=== PATIENT | male | born 1970 | race Caucasian/White ===

== ENCOUNTER 2024-08-07 10:01 | Emergency (ER) | payer MEDICARE, MEDICAID, SELFPAY ==
--- NOTE | ~2024-08-07 | CT_ITS ---
EXAMINATION: CT HEAD WITHOUT CONTRAST CLINICAL INFORMATION: Altered mental status COMPARISON: None available. TECHNIQUE: Contiguous axial imaging was performed from the skull base to vertex without intravenous administration of contrast. This CT examination was performed using dose optimization techniques as appropriate, variously including the following: *Automated exposure control *Adjustment of mA and/or kV according to patient size (this includes techniques or standardized protocols for targeted exams where dose is matched to indication/reason for exam; i.e. extremities or head) *Use of iterative reconstruction technique DLP: 733 mGy-cm FINDINGS: The ventricles and sulci are normal in size and configuration. No acute hemorrhage, mass effect or shift is evident. Poon-white differentiation is maintained. In the posterior fossa, the brainstem, cerebellum and fourth ventricle image normally. The orbits and calvarium are intact. The paranasal sinuses and mastoid air cells are well pneumatized and clear. Incidental note is made of a partially empty sella turcica. CT/CT head/brain wo IV con IMPRESSION: 1. No acute intracranial pathology. Electronically signed by: Matthew Archuleta MD 08/07/2024 12:57 PM EDT
[2024-08-07 10:06] VITALS: BP 125/78; BP 138/92; PULSE 92; PULSE 94; RESP 18; TEMP 36.8; O2SAT 96; O2SAT 98; BMI 20.1
--- NOTE | 2024-08-07 10:18 | ECG_ITS ---
Test Reason : AMS Blood Pressure : / mmHG Vent. Rate : 087 BPM Atrial Rate : 087 BPM P-R Int : 158 ms QRS Dur : 090 ms QT Int : 364 ms P-R-T Axes : 059 005 035 degrees QTc Int : 438 ms Artifact in tracing Normal sinus rhythm Normal ECG No previous ECGs available Referred By: Malu Arajuo Electronically Signed By:REECE ARTEAGA
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
[2024-08-07 10:43] LABS: MANUAL DIFF FLAG NO
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
[2024-08-07 10:48] LABS: Basophils Percent Auto 0.4 % (0-2); Eosinophils Absolute Auto 0.1 X10*3/uL (0.0-0.4); Eosinophils Percent Auto 1.3 % (0-4); Hematocrit 42.1 % (42.0-52.0); Hemoglobin 14.5 g/dl (14.0-18.0); Imm Gran Abs Auto 0.01 X10*3/uL (0.00-0.03); Imm Gran Pct Auto 0.2 % (0.0-0.4); Lymphocytes Absolute Auto 1.1 X10*3/uL (1.2-4.9); Lymphocytes Percent Auto 21.3 % (20-40); Mean Corpuscular HGB Conc 34.4 g/dl (31.0-36.0); Mean Corpuscular Hemoglobin 30.9 pg (27.0-33.0); Mean Corpuscular Volume 89.8 fL (80.0-98.0); Mean Platelet Volume 9.6 fL (9.4-12.4); Monocytes Absolute Auto 0.5 X10*3/uL (0.1-1.2); Monocytes Percent Auto 9.1 % (2-11); Neutrophils Absolute Auto 3.6 x10*3/uL (2.0-8.3); Neutrophils Percent Auto 67.7 % (45-73); Platelet Count 222 X10*3/uL (160-400); Red Blood Count 4.69 X10*6/uL (4.60-5.80); Red Cell Distribution Width 13.1 % (11.0-16.0); White Blood Count 5.3 X10*3/uL (4.8-10.8)
[2024-08-07 11:02] LABS: Ethanol < 10 mg/dL
[2024-08-07 11:03] LABS: Alanine Aminotransferase 12 U/L (0-40); Albumin Level 4.4 g/dL (3.5-5.0); Alkaline Phosphatase 50 U/L (39-117); Anion Gap 12 (12-20); Aspartate Amino Transferase 16 U/L (5-37); Bilirubin Direct 0.2 mg/dL (0.0-0.5); Bilirubin Total 0.7 mg/dL (0.0-1.0); Blood Urea Nitrogen 11 mg/dL (9-16); Calcium 9.2 mg/dL (8.4-10.2); Carbon Dioxide 25 mmol/L (22-29); Chloride 109 mmol/L (96-108); Creatinine Clr Calc Pharmacy 101.4; Estimated Glomerular Filt Rate > 60; Glucose Random 123 mg/dL (60-115); Lipase 37 U/L (8-78); Sodium 142 mmol/L (135-145); Total Protein 7.2 g/dL (6.5-8.0)
[2024-08-07 11:15] LABS: Acetaminophen LAB < 3 mcg/mL (<30); Salicylate < 5.0 mg/dL (15-30); Troponin-I High Sensitivity < 2.7 ng/L (<3.5-35.0)
[2024-08-07 12:07] VITALS: BP 114/73; PULSE 75; RESP 14; TEMP 37.4; O2SAT 98
[2024-08-07 15:03] VITALS: BP 108/57; PULSE 81; RESP 16; O2SAT 98
--- NOTE | 2024-08-07 16:33 | PC.NURSE ---
Pt cleaned and ate tray. Continues to talk to self and doesnt seem to answer questions appropriately but is cooperative with care. Plan for CARE team consult Diet ordered and pharmacy to do med rec when able
--- NOTE | 2024-08-07 18:06 | PHA.MEDREC ---
Pharmacy Consult ? Medication Reconciliation Pharmacy has completed the medication reconciliation. List from [facility]
[2024-08-07 18:20] VITALS: BP 126/87; PULSE 89; RESP 12; TEMP 37.7; O2SAT 100
--- NOTE | 2024-08-07 20:45 | MHC.EDTECH ---
This tech assumed care of patient at 1900,introduced self to patient,vitals taken,patient is clean and dry.
--- NOTE | 2024-08-07 20:52 | MHC.CARE ---
Mark was assessed via CARE TEAM and was found appropriate for an BOY follow up. He currently resides at [facility] and an appropriate discharge plan is needed prior to him returning. Guardian- Margarita [phone] is advocating for Mark to return to the assisted. She reported the assisted RN (Marnie [phone]) needs to clear him first. Important numbers/ contacts (long term care social worker Carri [phone]) ([facility] ynnhltou-[phone]-he decides if Mark returns after cleared) (group work program aide Dynasty [phone] or [phone]).
[2024-08-07 21:00] VITALS: BP 140/84; PULSE 91; RESP 18; TEMP 37.2; O2SAT 100
[2024-08-07 22:21] LABS: Appearance Urine Clear; Color Urine Dark Yellow; Glucose Urine UA Negative (Negative); Leukocyte Esterase Urine Trace (Negative); Nitrite Urine Negative (Negative); PH 5.5 (5.0-9.0); Specific Gravity - Urine >= 1.030 (1.005-1.025); UMIC TRIGGER UACC YES; Urine Blood Negative (Negative); Urine Ketones 40 mg/dL (Negative); Urine Protein Trace mg/dL (Neg-Trace)
--- NOTE | 2024-08-07 22:26 | MHC.EDTECH ---
Assisted Coni MOSCOSO with a straight cath,75MLS of concentrated urine obtained, sample collected and sent to lab,applied a [place] cath to keep patient clean and dry ,patient tolerated well,rectal temp taken 98.1
[2024-08-07 22:31] LABS: Amphetamine Screen Urine Not Detected (Not Detect); Barbiturates, Urine Not Detected (Not Detect); Benzodiazepines Screen Urine Not Detected (Not Detect); Buprenorphine Scr Not Detected (Not Detect); Cannabinoid Screen Urine Not Detected (Not Detect); Cocaine Screen Urine Not Detected (Not Detect); Fentanyl, urine Not Detected (Not Detect); Methadone Screen, Urine Not Detected (Not Detect); Opiate Screen Urine Not Detected (Not Detect); Oxycodone Screen Urine Not Detected (Not Detect); Phencyclidine Screen Urine Not Detected (Not Detect)
[2024-08-07 22:33] LABS: Bacteria Urine None Seen (None Seen); RBC Urine 0-2 /HPF (0-2); Squamous Epithelial Cell Urine 0-2 /HPF (0-2); WBC Urine 0-5 /HPF (0-5)
[2024-08-08 01:00] VITALS: RESP 16
[2024-08-08 06:52] VITALS: BP 134/81; PULSE 83; RESP 18; TEMP 36.8; O2SAT 100
[2024-08-08 08:35] VITALS: BP 118/76
[2024-08-08] MEDS: lisinopriL 5 MG TABLET PO (08:35)
[2024-08-08] MEDS: Docusate Sodium 100 MG CAPSULE PO (08:35)
[2024-08-08] MEDS: Thiamine HCL 100 MG TABLET PO (08:35)
[2024-08-08] MEDS: Loratadine 10 MG TABLET PO (08:35)
[2024-08-08] MEDS: Sennosides 8.6 MG TABLET PO (08:38)
[2024-08-08] MEDS: polyethylene glycoL 3350 17 GM POWD.PACK PO (08:38)
[2024-08-08] MEDS: risperiDONE 0.25 MG TABLET PO (08:38)
[2024-08-08] MEDS: Cholecalciferol (Vitamin D3) 25 MCG TABLET PO (09:10)
[2024-08-08] MEDS: Benztropine Mesylate 1 MG TABLET PO (09:10)
--- NOTE | 2024-08-08 12:50 | MHC.CARE ---
Pt was seen for follow up by CARE team, verbal consult done with Merced Nix NP. Pt does not currently meet inpatient level of care and will discharged back to custodial. Clinician provided ED RN with contact information for [facility] director of custodial as he will arrange transport back to custodial. Waiting for return phone call for ETA. ED RN informed
[2024-08-08 14:52] VITALS: BP 118/76; PULSE 83; RESP 16; TEMP 36.8; O2SAT 100
== END 2024-08-08 14:53 | disposition home or self-care (01) ==
PROVIDERS: Emergency Medicine; Emergency Provider Emergency Medicine Emergency Medical Services; PCP Family Medicine
DX: R41.82 Altered mental status, unspecified (principal); F31.9 Bipolar disorder, unspecified; R45.6 Violent behavior; F91.8 Other conduct disorders; Z51.81 Encounter for therapeutic drug level monitoring; Z79.899 Other long term (current) drug therapy
CPT/HCPCS: 36415; 70450; 80048; 80076; 80143; 80179; 80307; 81001; 83690; 84484; 85025; 93005; 99285; S9485

== ENCOUNTER → 2024-08-07 10:18 | Outpatient (BNV) | payer MEDICARE, MEDICAID, SELFPAY | PROVIDERS: Emergency Provider Emergency Medicine; PCP Family Medicine; Visit Provider Internal Medicine | DX: R41.82 Altered mental status, unspecified (principal) | CPT/HCPCS: 93010 ==

== ENCOUNTER 2024-10-23 21:24 | Inpatient (IN) | payer MEDICARE, MEDICAID, SELFPAY ==
--- NOTE | ~2024-10-23 | CT_ITS ---
CLINICAL HISTORY: memory changes behavior changes CT head without contrast Comparison: CT/SR - CT HEAD/BRAIN WO IV CON - 08/07/24 10:52 EDT Findings: No intra-axial mass, midline shift, hydrocephalus, or acute hemorrhage. No significant atrophy-like change or white matter disease. The visualized paranasal sinuses and mastoid air cells are normal. The orbits are unremarkable. No skull fracture. IMPRESSION: 1. No acute intracranial findings This document has been electronically signed by: Trini Ragland MD on 10/24/2024 18:36:12
--- NOTE | ~2024-10-23 | CT_ITS ---
EXAMINATION: CT HEAD WITHOUT CONTRAST CLINICAL INFORMATION: Cognitive/affective weakness with psych meds. COMPARISON: CT brain 10/24/2024. TECHNIQUE: Contiguous axial imaging was performed from the skull base to vertex without intravenous administration of contrast. This CT examination was performed using dose optimization techniques as appropriate, variously including the following: *Automated exposure control *Adjustment of mA and/or kV according to patient size (this includes techniques or standardized protocols for targeted exams where dose is matched to indication/reason for exam; i.e. extremities or head) *Use of iterative reconstruction technique DLP 994 mGy/cm. FINDINGS: There is no acute intra-axial, extra-axial bleed, masses or midline shift. There is no acute infarction in evolution. There is no edema. The mcdowell to white matter differentiation is maintained normal. The lateral ventricles are symmetrical but moderately enlarged. Bone windows reveal no calvarial abnormality. There is no scalp soft tissue abnormality. Bilateral paranasal sinuses and mastoid air cells are well-aerated. CT/CT head/brain wo IV con IMPRESSION: No acute intracranial process seen. No change from 10/24/2024. Electronically signed by: Eugenio Small MD 11/06/2024 07:24 AM EST
[2024-10-23 21:35] VITALS: BP 139/80; BP 142/90; PULSE 104; PULSE 109; RESP 18; TEMP 36.8; O2SAT 98; BMI 25.8
[2024-10-23 22:19] LABS: Appearance Urine Clear; Color Urine Yellow; Glucose Urine UA Negative (Negative); Leukocyte Esterase Urine Negative (Negative); Nitrite Urine Negative (Negative); Specific Gravity - Urine 1.015 (1.005-1.025); Urine Blood Negative (Negative); Urine Ketones Negative (Negative); Urine Protein Negative (Neg-Trace)
[2024-10-23 22:22] LABS: Bacteria Urine None Seen (None Seen); Hyaline Casts Urine 0-2 /LPF (0-2); RBC Urine 0-2 /HPF (0-2); Squamous Epithelial Cell Urine 0-2 /HPF (0-2); WBC Urine 0-5 /HPF (0-5)
[2024-10-23 22:31] LABS: Amphetamine Screen Urine Not Detected (Not Detect); Barbiturates, Urine Not Detected (Not Detect); Benzodiazepines Screen Urine Not Detected (Not Detect); Buprenorphine Scr Not Detected (Not Detect); Cannabinoid Screen Urine Not Detected (Not Detect); Cocaine Screen Urine Not Detected (Not Detect); Fentanyl, urine Not Detected (Not Detect); Methadone Screen, Urine Not Detected (Not Detect); Opiate Screen Urine Not Detected (Not Detect); Oxycodone Screen Urine Not Detected (Not Detect); Phencyclidine Screen Urine Not Detected (Not Detect)
--- OUTSIDE RECORDS SUMMARY | 2024-10-23 22:42 | XMS_ITS | Clinical Summary ---
Author Organization Unknown Care Team Providers Care Chief Meter Reader Name Role Phone JULIO C HERNANDEZ MD, YOGI Unavailable Jeaneth FERRO RN, SHANNON Unavailable Unavailable Payers Payer Name Policy Type Policy Number Effective Date Expira tion Date ON [place]AND [place]IC[place] [id number] [place] - [place] [id number] [facility] - PD [id number] Problems Condition Name Condition Details Condition Category Status Onset Date Resolution Date Last Treatment Date Treating Clinician Comments BIPOLAR DISORDER, UNSPECIFIED Active 2023-10 00:00: 00 Allergies, Adverse Reactions, Alerts Allergy Name Allergy Type Status Severity Reaction(s) Onset Date Inactive Date Treating Clinician Comments NKA Propensity to adverse reactions Active 2024-07 08:01:4 2 Medications Ordered Medication Name Filled Medication Name Start Date Stop Date Current Medication? Ordering Clinician Indication Dosage Frequency Signature (SIG) Comments Components lisinopril 5 mg tablet 2022-10 00:00: 00 Yes [id number] 1 tablet DAILY 1 tablet DAILY (route: oral) Med Classific ation: Cardiovas cular Therapy Agents trazodone 50 mg tablet 2022-10 00:00: 00 08-11 23:59 :00 No [id number] 1 tablet BEDTIME 1 tablet BEDTIME (route: oral) Med Classific ation: Central Nervous System Agents bisacodyl 10 mg rectal suppository 2023-10 00:00: 00 Yes [id number] 1 supposi tory, rectal 3 TIMES DAILY 1 suppositor y, rectal 3 TIMES DAILY (route: rectal) Med Classific ation: Gastroint estinal Therapy Agents cholecalcif andrez (vitamin D3) 25 mcg (1,000 unit) tablet 2023-10 00:00: 00 Yes [id number] 1 tablet DAILY 1 tablet DAILY (route: oral) Med Classific ation: Electroly te Balance-N utritiona l Products clonidine HCl 0.1 mg tablet 2023-10 00:00: 00 Yes [id number] 1 tablet BEDTIME 1 tablet BEDTIME (route: oral) Med Classific ation: Cardiovas cular Therapy Agents docusate sodium 100 mg capsule 2023-10 0- 00:00: 00 Yes [id number] 1 capsule 2 TIMES DAILY 1 capsule 2 TIMES DAILY (route: oral) Med Classific ation: Gastroint estinal Therapy Agents Fleet Enema 19 gram-7 gram/118 mL 2023-10 0- 00:00: 00 Yes [id number] Per instruc tions EVERY 8 HOURS Per instructio ns EVERY 8 HOURS (route: rectal) Med Classific ation: Gastroint estinal Therapy Agents lisinopril 5 mg tablet 2023-10 00:00: 00 Yes [id number] Per instruc tions DAILY Per instructio ns DAILY (route: oral) Med Classific ation: Cardiovas cular Therapy Agents loratadine 10 mg capsule 2023-10 00:00: 00 Yes [id number] 1 capsule DAILY 1 capsule DAILY (route: oral) Med Classific ation: Respirato ry Therapy Agents MelatoninMa x 10 mg chewable tablet 2023-10 00:00: 00 Yes [id number] 1 tablet BEDTIME 1 tablet BEDTIME (route: oral) Med Classific ation: Central Nervous System Agents Milk of Magnesia 400 mg/5 mL oral suspension 2023-10 0 00:00: 00 Yes [id number] 30 mL EVERY 8 HOURS 30 mL EVERY 8 HOURS (route: oral) Med Classific ation: Gastroint estinal Therapy Agents Miralax 17 gram oral powder packet 2023-10 00:00: 00 Yes [id number] 1 packet DAILY 1 packet DAILY (route: oral) Med Classific ation: Gastroint estinal Therapy Agents Mylanta Maximum Strength 400 mg-400 mg-40 mg/5 mL oral suspension 2023-10 0 00:00: 00 Yes [id number] 30 mL EVERY 4 HOURS 30 mL EVERY 4 HOURS (route: oral) Med Classific ation: Gastroint estinal Therapy Agents Narcan 4 mg/actuatio n nasal spray 2023-10 0-18 00:00: 00 Yes [id number] 1 spray DAILY 1 spray DAILY (route: nasal) Med Classific ation: Antidotes and other Reversal Agents Refresh Tears 0.5 % eye drops 2023-10 00:00: 00 Yes [id number] 2 drops 3 TIMES DAILY 2 drops 3 TIMES DAILY (route: ophthalmic (eye)) Med Classific ation: Ophthalmi c Agents risperidone 0.25 mg tablet 2023-10 00:00: 00 Yes [id number] 1 tablet 2 TIMES DAILY 1 tablet 2 TIMES DAILY (route: oral) Med Classific ation: Central Nervous System Agents Senna Lax 8.6 mg tablet 2023-10 00:00: 00 Yes [id number] 2 tablet EVERY AM 2 tablet EVERY AM (route: oral) Med Classific ation: Gastroint estinal Therapy Agents thiamine HCl (vitamin B1) 100 mg tablet 2023-10 00:00: 00 Yes [id number] 1 tablet DAILY 1 tablet DAILY (route: oral) Med Classific ation: Electroly te Balance-N utritiona l Products trazodone 50 mg tablet 2023-10 00:00: 00 Yes [id number] .5 tablet BEDTIME .5 tablet BEDTIME (route: oral) Med Classific ation: Central Nervous System Agents Vital Signs Vital Name Observation Time Observation Value Commen ts BMI (%) 2024-08-11 12:55:00.000 22 kg/m2 Height 2024-08-11 09:45:49.000 70 [in_us] Weight (lbs) 2024-08-11 12:55:00.000 155 [lb_av] Plan of Treatment Planned Activity Planned Date Details Comments Future Scheduled Test SKILLED NU RSE TO EVALUATE PATIENT, IDENTIFY PRIMARY AND CO-MORBID CONDITIONS CODED PER CODING GUIDELINES, AND DEVELOP PATIENT SPECIFIC PLAN OF CARE THAT INCLUDES PATIENT GOAL FOR HOME HEALTH. [code = SKILLED NURSE TO EVALUATE PATIENT, IDENTIFY PRIMARY AND CO-MORBID CONDITIONS CODED PER CODING GUIDELINES, AND DEVELOP PATIENT SPECIFIC PLAN OF CARE THAT INCLUDES PATIENT GOAL FOR HOME HEALTH.] Future Scheduled Test SKILLED NU RSE WILL MAINTAIN SITUATIONAL AWARENESS FOR SAFETY AND WILL NOTIFY CLINICAL FORGE OPERATOR AND PHYSICIAN/PROVIDER WITH ANY CHANGE IN CONDITION. [code = SKILLED NURSE WILL MAINTAIN SITUATIONAL AWARENESS FOR SAFETY AND WILL NOTIFY CLINICAL FORGE OPERATOR AND PHYSICIAN/PROVIDER WITH ANY CHANGE IN CONDITION.] Future Scheduled Test SKILLED NU RSE TO ASSESS PATIENTS PSYCHOSOCIAL STATUS TO IDENTIFY POTENTIAL ISSUES THAT MAY COMPLICATE THE PROVISION OF THE PLAN OF CARE INCLUDING THE PATIENTS ABILITY TO ACCESS COMMUNITY RESOURCES AND PSYCHOSOCIAL SUPPORT SERVICES. [code = SKILLED NURSE TO ASSESS PATIENTS PSYCHOSOCIAL STATUS TO IDENTIFY POTENTIAL ISSUES THAT MAY COMPLICATE THE PROVISION OF THE PLAN OF CARE INCLUDING THE PATIENTS ABILITY TO ACCESS COMMUNITY RESOURCES AND PSYCHOSOCIAL SUPPORT SERVICES.] Future Scheduled Test SKILLED NU RSE TO O/A OF PATIENTS MENTAL/BEHAVIORAL STATUS, ASSESS VITAL SIGNS 3WK8 ALLOW 2 PRNS FOR MEDICATION MANAGEMENT. [code = SKILLED NURSE TO O/A OF PATIENTS MENTAL/BEHAVIORAL STATUS, ASSESS VITAL SIGNS 3WK8 ALLOW 2 PRNS FOR MEDICATION MANAGEMENT.] Future Scheduled Test SKILLED NU RSE FOR O/A OF GENERAL HEALTH STATUS OF PAIN, CARDIAC, RESPIRATORY, GASTROINTESTINAL, GENITOURINARY, SKIN, NEUROLOGIC, ENDOCRINE SYSTEMS TO IDENTIFY CHANGES ASSOCIATED WITH EXACERBATION FOR EARLY INTERVENTION OF COMPLICATIONS 3WK8 [code = SKILLED NURSE FOR O/A OF GENERAL HEALTH STATUS OF PAIN, CARDIAC, RESPIRATORY, GASTROINTESTINAL, GENITOURINARY, SKIN, NEUROLOGIC, ENDOCRINE SYSTEMS TO IDENTIFY CHANGES ASSOCIATED WITH EXACERBATION FOR EARLY INTERVENTION OF COMPLICATIONS 3WK8 ] Future Scheduled Test SKILLED NU RSE TO REVIEW PATIENT MEDICATIONS. INSTRUCT PATIENT/CAREGIVER ON MONITORING OF EFFECTIVENESS, ADVERSE DRUG REACTIONS, SIDE EFFECTS OF ALL MEDICATIONS (PRESCRIPTION/-OTC), AND HOW AND WHEN TO REPORT PROBLEMS. [code = SKILLED NURSE TO REVIEW PATIENT MEDICATIONS. INSTRUCT PATIENT/CAREGIVER ON MONITORING OF EFFECTIVENESS, ADVERSE DRUG REACTIONS, SIDE EFFECTS OF ALL MEDICATIONS (PRESCRIPTION/-OTC), AND HOW AND WHEN TO REPORT PROBLEMS.] Future Scheduled Test SKILLED NU RSE FOR O/A OF NEUROCOGNITIVE AND BEHAVIORAL STATUS [code = SKILLED NURSE FOR O/A OF NEUROCOGNITIVE AND BEHAVIORAL STATUS] Future Scheduled Test SKILLED NU RSE FOR O/A OF ALTERED MOOD [code = SKILLED NURSE FOR O/A OF ALTERED MOOD] Future Scheduled Test SKILLED NU RSE FOR O/A OF ALTERED THOUGHT PROCESS AND/OR DISRUPTION IN COGNITIVE OPERATIONS AND ACTIVITIES [code = SKILLED NURSE FOR O/A OF ALTERED THOUGHT PROCESS AND/OR DISRUPTION IN COGNITIVE OPERATIONS AND ACTIVITIES ] Future Scheduled Test PHYSICAL T HERAPIST TO EVALUATE PATIENT FOR PT EVALUATION [code = PHYSICAL THERAPIST TO EVALUATE PATIENT FOR PT EVALUATION ] Future Scheduled Test SKILLED NU RSE TO PROVIDE INSTRUCTION ON FALL PREVENTION MEASURES. [code = SKILLED NURSE TO PROVIDE INSTRUCTION ON FALL PREVENTION MEASURES.] Future Scheduled Test SKILLED NU RSE FOR OBSERVATION AND ASSESSMENT OF PATIENTS PAIN LEVEL AND EFFECTIVENESS OF PAIN MANAGEMENT REGIMEN. SKILLED NURSE TO INSTRUCT PATIENT/CAREGIVER REGARDING PHARMACOLOGIC AND NON-PHARMACOLOGIC PAIN CONTROL MEASURES. SKILLED NURSE TO REPORT TO PHYSICIAN IF PAIN IS UNCONTROLLED WITH CURRENT PAIN MANAGEMENT REGIMEN. [code = SKILLED NURSE FOR OBSERVATION AND ASSESSMENT OF PATIENTS PAIN LEVEL AND EFFECTIVENESS OF PAIN MANAGEMENT REGIMEN. SKILLED NURSE TO INSTRUCT PATIENT/CAREGIVER REGARDING PHARMACOLOGIC AND NON-PHARMACOLOGIC PAIN CONTROL MEASURES. SKILLED NURSE TO REPORT TO PHYSICIAN IF PAIN IS UNCONTROLLED WITH CURRENT PAIN MANAGEMENT REGIMEN.] Goal 2024-08-16 Patient Goal - P ATIENT UNABLE TO ARTICULATE GOALS FOR TREATMENT WITH ZULEMA SANTOS Goal Provider Goal - A PLAN OF CARE WILL BE ESTABLISHED THAT MEETS PATIENT'S FDC NEEDS AND INCLUDES PATIENT GOAL FOR HOME HEALTH. Goal Provider Goal - PATIENT WILL REMAIN SAFE IN THE COMMUNITY AND WILL BE FREE OF DANGER TO SELF AND OTHERS THROUGHOUT THE CERTIFICATION PERIOD. Goal Provider Goal - PSYCHOSOCIAL NEEDS WILL BE IDENTIFIED AND PLAN IMPLEMENTED TO MINIMIZE RISK THROUGHOUT CERTIFICATION PERIOD. Goal Provider Goal - ALTERED MENTAL/BEHAVIORAL STATUS WILL BE IDENTIFIED PROMPTLY AND INTERVENTION INITIATED QUICKLY TO MINIMIZE ASSOCIATED RISKS THROUGHOUT CERTIFICATION PERIOD. Goal Provider Goal - CHANGE IN GENERAL HEALTH STATUS WILL BE IDENTIFIED AND REPORTED TO PHYSICIAN FOR PROMPT INTERVENTION TO MINIMIZE ASSOCIATED RISKS THROUGHOUT CERTIFICATION PERIOD. Goal Provider Goal - PATIENT/CAREGIVER WILL VERBALIZE UNDERSTANDING OF EDUCATION PROVIDED ON MEDICATIONS BY THE END OF THE CERTIFICATION PERIOD. Goal Provider Goal - PATIENT WILL BE ABLE TO PERFORM DAILY FUNCTIONS AND MAINTAIN OPTIMAL BEHAVIORAL/NEUROCOGNITIVE STATUS THROUGHOUT CERTIFICATION PERIOD. Goal Provider Goal - PATIENT WILL BE ABLE TO PERFORM DAILY FUNCTIONS AND HAVE OPTIMAL IMPROVEMENT IN MOOD STABILITY THROUGHOUT CERTIFICATION PERIOD. Goal Provider Goal - PATIENT WILL BE ABLE TO PERFORM DAILY FUNCTIONS AND HAVE OPTIMAL IMPROVEMENT IN THOUGHT PROCESS THROUGHOUT CERTIFICATION PERIOD. Goal Provider Goal - A PHYSICAL THERAPY EVALUATION TO BE COMPLETED WITH RECOMMENDATIONS AND/OR WRITTEN PLAN OF TREATMENT ESTABLISHED FOR PHYSICIANS SIGNATURE. Goal Provider Goal - PATIENT/CAREGIVER DEMONSTRATES UNDERSTANDING OF FALL PREVENTION MEASURES BY THE END OF THE CERTIFICATION PERIOD. Reason for Visit REMAINS INPATIENT AT TIME OF DISCHARGE Encounters Start Date/Time End Date/Time Encounter Type Admission Type Attending [facility] Facility Care Department Encounter ID Discharge Date Discharge Status Discharge Condition Discharge Reason Percent Goals Met 2024-08-11 00:00:00 2024-08-16 00:00:00 Outpatient SHANNON H[facility]Y [facility] [id number] 2024-08-16 00:00:00 DISCHARGED /TRANSFERR ED TO A SHORT-TERM [facility] FOR INPATIENT [facility] REMAINS INPATIENT AT TIME OF DISCHARGE ADMITTED TO HOSPITAL 100.00
[2024-10-23 23:38] LABS: Basophils Absolute Auto 0.1 X10*3/uL (0.0-0.2); Basophils Percent Auto 0.6 % (0-2); Eosinophils Absolute Auto 1.2 X10*3/uL (0.0-0.4); Eosinophils Percent Auto 9.6 % (0-4); Hemoglobin 11.7 g/dl (14.0-18.0); Imm Gran Abs Auto 0.04 X10*3/uL (0.00-0.03); Imm Gran Pct Auto 0.3 % (0.0-0.4); Lymphocytes Absolute Auto 1.9 X10*3/uL (1.2-4.9); Lymphocytes Percent Auto 14.9 % (20-40); Mean Corpuscular HGB Conc 34.4 g/dl (31.0-36.0); Mean Corpuscular Hemoglobin 31.7 pg (27.0-33.0); Mean Corpuscular Volume 92.1 fL (80.0-98.0); Mean Platelet Volume 9.6 fL (9.4-12.4); Monocytes Absolute Auto 1.3 X10*3/uL (0.1-1.2); Monocytes Percent Auto 9.7 % (2-11); Neutrophils Absolute Auto 8.4 x10*3/uL (2.0-8.3); Neutrophils Percent Auto 64.9 % (45-73); Platelet Count 210 X10*3/uL (160-400); Red Blood Count 3.69 X10*6/uL (4.60-5.80); Red Cell Distribution Width 13.5 % (11.0-16.0)
[2024-10-23 23:39] LABS: MANUAL DIFF FLAG NO
[2024-10-23 23:53] LABS: Valproate 46.1 mcg/mL (50.0-100.0)
[2024-10-23 23:54] LABS: Alanine Aminotransferase 15 U/L (0-40); Albumin Level 3.6 g/dL (3.5-5.0); Alkaline Phosphatase 43 U/L (39-117); Anion Gap 12 (12-20); Aspartate Amino Transferase 23 U/L (5-37); Bilirubin Total 0.2 mg/dL (0.0-1.0); Blood Urea Nitrogen 10 mg/dL (9-16); Calcium 8.6 mg/dL (8.4-10.2); Carbon Dioxide 23 mmol/L (22-29); Chloride 111 mmol/L (96-108); Creatinine Clr Calc Pharmacy 107.8; Estimated Glomerular Filt Rate > 60; Ethanol < 10 mg/dL; Glucose Random 95 mg/dL (60-115); Potassium 3.7 mmol/L (3.3-5.1); Sodium 142 mmol/L (135-145); Total Protein 6.2 g/dL (6.5-8.0)
[2024-10-23 23:58] LABS: Acetaminophen LAB < 3 mcg/mL (<30); Salicylate < 5.0 mg/dL (15-30)
--- NOTE | 2024-10-24 00:07 | ED_ITS ---
HPI - Psych General Chief Complaint: Psychiatric Symptoms Stated Complaint: SI from grp home Time Seen by Provider: 10/23/24 23:55 Source: patient Limitations: no limitations History of Present Illness ED Provider: Luann Odonnell PA-C HPI Narrative: 53-year-old male with a history of cognitive impairment comes from his half-way with SI. Patient admits to increasing depression over ?his parents dying?. Patient does not have a specific plan for self-harm, denies alcohol or illicit substance use. Related Data Home Medications ?Medication ?Instructions ?Recorded ?Confirmed acetaminophen 325 mg tablet 650 mg PO Q6H PRN pain or fever 08/07/24 08/07/24 benztropine 1 mg tablet 1 mg PO BID 08/07/24 08/07/24 bisacodyl 10 mg rectal suppository 10 mg HI Q8H PRN no bm after 08/07/24 08/07/24 giving m.o.m carboxymethylcellulose sodium 0.5 2 drp ophthalmic (eye) TID PRN Dry 08/07/24 08/07/24 % eye drops (Refresh Tears) Eyes cholecalciferol (vitamin D3) 25 25 mcg PO DAILY 08/07/24 08/07/24 mcg (1,000 unit) tablet clonidine HCl 0.1 mg tablet 0.1 mg PO BEDTIME PRN Insomnia 08/07/24 08/07/24 docusate sodium 100 mg capsule 100 mg PO BID 08/07/24 08/07/24 lisinopril 10 mg tablet 5 mg PO DAILY 08/07/24 08/07/24 loratadine 10 mg tablet 10 mg PO DAILY 08/07/24 08/07/24 magnesium hydroxide 400 mg/5 mL 30 ml PO Q8H PRN if no bm for 3 08/07/24 08/07/24 oral suspension (Milk of Magnesia) days melatonin 10 mg tablet 10 mg PO BEDTIME Sleep 08/07/24 08/07/24 ondansetron HCl 4 mg tablet 4 mg PO Q6H PRN nausea or vomiting 08/07/24 08/07/24 polyethylene glycol 3350 17 gram 17 g PO DAILY 08/07/24 08/07/24 oral powder packet risperidone 0.25 mg tablet 0.25 mg PO BID 08/07/24 08/07/24 sennosides 8.6 mg tablet (senna) 8.6 mg PO DAILY 08/07/24 08/07/24 thiamine HCl (vitamin B1) 100 mg 100 mg PO DAILY 08/07/24 08/07/24 tablet Allergies Allergy/AdvReac Type Severity Reaction Status Date / Time atenolol [From Tenormin] Allergy Unknown Verified 10/23/24 21:47 hydrochlorothiazide Allergy Unknown Verified 10/23/24 21:47 Review of Systems 2 Review of Systems: Yes all other systems are reviewed and are negative Constitutional: Constitutional: Denies fatigue, Denies fever(s) and Denies headache(s) ENT: Denies headache(s) Cardiovascular: Cardiovascular: Denies chest pain and Denies dyspnea Respiratory: Respiratory: Denies cough and Denies dyspnea Gastrointestinal: Gastrointestinal: Denies nausea Neurologic: Denies headache(s) Endocrine: Endocrine: Denies fatigue PMFSH Past Medical History Attestation statement: The following information was validated with the patient. Social History Social History Alcohol intake: unknown Smoked in Last 30 Days: No Use of substances other than those prescribed or required for medical reasons: No Advance Directives: No Advance Directives Information Provided: No Do you have a plan to hurt others: No Plan Physical Exam 2 Vital Signs: Vital Signs: Last Vital Signs Temp 98.3 F 10/23/24 21:35 Pulse 104 H 10/23/24 21:35 Resp 18 10/23/24 21:35 BP 139/80 10/23/24 21:35 Pulse Ox 98 10/23/24 21:35 O2 Del Method Room Air 10/23/24 21:35 BMI result Body Mass Index 25.8 Const: Other: Alert Orientation/consciousness: oriented to person and oriented to place Resp: Effort & Inspection: normal respiratory effort Cardio: Other: Normal peripheral perfusion Skin: Other: Warm dry no rash Neuro: Other: Not the exact date General: oriented to person and oriented to place Psych: Other: Cooperative Course Course Course Narrative: Signed out to night team pending care team consult Medical Decision Making Medical Decision Making MDM Narrative: 53-year-old male with a history of cognitive impairment comes from his half-way with SI. Patient admits to increasing depression over ?his parents dying?. Patient does not have a specific plan for self-harm, denies alcohol or illicit substance use. Problem: Cognitive impairment History: Per patient I have considered the following differential diagnoses: SI, HI, decompensated psychiatric illness, drug/alcohol intoxication Plan: Screening labs including drug screen and serum ethanol obtained, the patient will be referred to the care team. I have independently reviewed the following tests: Labs: Slight leukocytosis, not anemic, no electrolyte abnormality, U tox negative, ethanol negative Lab Data 10/23/24 23:26 10/23/24 23:26 Labs: Lab Results 10/23/24 10/23/24 Range/Units 22:10 23:26 WBC 13.0 H (4.8-10.8) X10*3/uL RBC 3.69 L D (4.60-5.80) X10*6/uL Hgb 11.7 L (14.0-18.0) g/dl Hct 34.0 L (42.0-52.0) % MCV 92.1 (80.0-98.0) fL MCH 31.7 (27.0-33.0) pg MCHC 34.4 (31.0-36.0) g/dl RDW 13.5 (11.0-16.0) % Plt Count 210 (160-400) X10*3/uL MPV 9.6 (9.4-12.4) fL Immature Gran % (Auto) 0.3 (0.0-0.4) % Neut % (Auto) 64.9 (45-73) % Lymph % (Auto) 14.9 L (20-40) % [place] % (Auto) 9.7 (2-11) % Eos % (Auto) 9.6 H (0-4) % Baso % (Auto) 0.6 (0-2) % Lymph # (Auto) 1.9 (1.2-4.9) X10*3/uL [place] # (Auto) 1.3 H (0.1-1.2) X10*3/uL Eos # (Auto) 1.2 H (0.0-0.4) X10*3/uL Baso # (Auto) 0.1 (0.0-0.2) X10*3/uL Abs Immat Gran (auto) 0.04 H (0.00-0.03) X10*3/uL Absolute Neuts (auto) 8.4 H (2.0-8.3) x10*3/uL Absolute Nucleated RBC 0.000 (0.0-0.012) X10*3/uL Nucleated RBC % (auto) 0.0 (0.0-0.2) /100WBC Sodium 142 (135-145) mmol/L Potassium 3.7 (3.3-5.1) mmol/L Chloride 111 H (96-108) mmol/L Carbon Dioxide 23 (22-29) mmol/L Anion Gap 12 (12-20) BUN 10 (9-16) mg/dL Creatinine 0.81 (0.5-1.4) mg/dL Estim Creat Clear Calc 107.8 Estimated GFR > 60 Random Glucose 95 (60-115) mg/dL Calcium 8.6 D (8.4-10.2) mg/dL Total Bilirubin 0.2 (0.0-1.0) mg/dL AST 23 (5-37) U/L ALT 15 (0-40) U/L Alkaline Phosphatase 43 (39-117) U/L Total Protein 6.2 L (6.5-8.0) g/dL Albumin 3.6 (3.5-5.0) g/dL Urine Color Yellow Urine Appearance Clear Urine pH 6.0 (5.0-9.0) Ur Specific [place] 1.015 (1.005-1.025) Urine Protein Negative (Neg-Trace) mg/dL Urine Glucose (UA) Negative (Negative) mg/dL Urine Ketones Negative (Negative) mg/dL Urine Blood Negative (Negative) Urine Nitrite Negative (Negative) Ur Leukocyte Esterase Negative (Negative) Urine RBC 0-2 (0-2) /HPF Urine WBC 0-5 (0-5) /HPF Ur Squamous Epith Cells 0-2 (0-2) /HPF Urine Bacteria None Seen (None Seen) Hyaline Casts 0-2 (0-2) /LPF Salicylates < 5.0 L (15-30) mg/dL Urine Opiates Screen Not Detected (Not Detect) Ur Buprenorphine Scrn Not Detected (Not Detect) ng/mL Ur Oxycodone Screen Not Detected (Not Detect) ng/mL Urine Methadone Screen Not Detected (Not Detect) ng/mL Urine Fentanyl Screen Not Detected (Not Detect) Acetaminophen < 3 (<30) mcg/mL Ur Barbiturates Screen Not Detected (Not Detect) Valproic Acid 46.1 L (50.0-100.0) mcg/mL Ur Phencyclidine Scrn Not Detected (Not Detect) Ur Amphetamines Screen Not Detected (Not Detect) U Benzodiazepines Scrn Not Detected (Not Detect) Urine Cocaine Screen Not Detected (Not Detect) U Marijuana (THC) Screen Not Detected (Not Detect) Ethyl Alcohol < 10 mg/dL Discharge Plan Discharge Clinical Impression: Depression, Suicidal ideation Patient Disposition: Still a Patient Prescriptions: No Action sennosides [senna] 8.6 mg Tablet 8.6 mg PO DAILY clonidine HCl 0.1 mg Tablet 0.1 mg PO BEDTIME PRN (Reason: Insomnia) acetaminophen 325 mg Tablet 650 mg PO Q6H PRN (Reason: pain or fever) polyethylene glycol 3350 17 gram Powder In Packet 17 g PO DAILY ondansetron HCl 4 mg Tablet 4 mg PO Q6H PRN (Reason: nausea or vomiting) thiamine HCl (vitamin B1) 100 mg Tablet 100 mg PO DAILY risperidone 0.25 mg tablet 0.25 mg PO BID magnesium hydroxide [Milk of Magnesia] 400 mg/5 mL Suspension 30 ml PO Q8H PRN (Reason: if no bm for 3 days) carboxymethylcellulose sodium [Refresh Tears] 0.5 % Drops 2 drp OPHTHALMIC (EYE) TID PRN (Reason: Dry Eyes) bisacodyl 10 mg Suppository 10 mg HI Q8H PRN (Reason: no bm after giving m.o.m) lisinopril 10 mg Tablet 5 mg PO DAILY Rx Instructions: hold if sbp <100 or DBP <60 benztropine 1 mg tablet 1 mg PO BID docusate sodium 100 mg Capsule 100 mg PO BID loratadine 10 mg Tablet 10 mg PO DAILY cholecalciferol (vitamin D3) 25 mcg (1,000 unit) Tablet 25 mcg PO DAILY melatonin 10 mg Tablet 10 mg PO BEDTIME Interventions: [place]-Suicide Risk Severity Scale Last Done: 10/23/24 21:48 Print Language: Lao
[2024-10-24 05:24] VITALS: BP 131/85; PULSE 104; RESP 20; TEMP 37; O2SAT 98
[2024-10-24] MEDS: Ibuprofen 400 MG TABLET PO (05:43)
[2024-10-24] MEDS: Ondansetron ODT 4 MG TAB.RAPDIS TRANSLINGU (05:46)
--- NOTE | 2024-10-24 05:47 | PC.NURSE ---
pt has had two episodes of stool incontinence overnight. pt observed walking out of bedroom verbalizing need to use bathroom, stool dripping out of pants onto floor on both occasions. pt also reports mild-moderate abdominal aching with nausea. pt cleaned in shower. MD made aware. zofran and ibuprofen given PO. GIP + c. diff testing ordered. pt now back in bed, calm, states needs are met at this time. plan of care ongoing
[2024-10-24] MEDS: Loperamide HCl 2 MG CAPSULE 4 MG PO (06:35)
[2024-10-24 07:38] LABS: CDiff Gene PCR NEGATIVE (Negative)
--- NOTE | 2024-10-24 09:00 | PC.NURSE ---
Pt very intrusive- redirected away from nursing station
[2024-10-24 10:09] LABS: Adenovirus F 40/41 Not Detected (Not Detect.); Astrovirus Not Detected (Not Detect.); Campylobacter Not Detected (Not Detect.); Cryptosporidium Not Detected (Not Detect.); Cyclospora cayetanensis Not Detected (Not Detect.); E. coli EAEC Not Detected (Not Detect.); E. coli EPEC Not Detected (Not Detect.); E. coli ETEC Not Detected (Not Detect.); E. coli STEC Not Detected (Not Detect.); Entamoeba histolytica Not Detected (Not Detect.); Giardia lamblia Not Detected (Not Detect.); Norovirus GI/GII Not Detected (Not Detect.); Plesiomonas shigelloides Not Detected (Not Detect.); Rotavirus A Not Detected (Not Detect.); Salmonella Not Detected (Not Detect.); Sapovirus Not Detected (Not Detect.); Shigella sp./EIEC Not Detected (Not Detect.); Vibrio Not Detected (Not Detect.); Vibrio Cholerae Not Detected (Not Detect.); Yersinia enterocolitica Not Detected (Not Detect.)
[2024-10-24 10:29] LABS: Ammonia 34 umol/L (13-55)
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
--- NOTE | 2024-10-24 11:47 | MHC.CARE ---
Psych consult completed, recommendation for inpatient level of care. See heat and frost insulator note for additional information.
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
[2024-10-24 13:23] VITALS: BP 120/85; PULSE 97; RESP 18; TEMP 36.8; O2SAT 99
--- NOTE | 2024-10-24 15:03 | PC.NURSE ---
No further episodes of dirrhea- pt asking for multiple items- able to redirect with puzzle
--- NOTE | 2024-10-24 16:23 | PHA.MEDREC ---
Pharmacy Consult ? Medication Reconciliation Pharmacy has completed the medication reconciliation. Several revisions made after list from pt obtained, nurse notified.
--- NOTE | 2024-10-24 16:57 | PC.NURSE ---
Pt has been ambulatory in department. Talking with staff and eating snacks. No distress. Speech is difficult to understand.
--- NOTE | 2024-10-24 17:10 | PC.NURSE ---
back from CT. tech reports that patient was a little shakey but tolerated proceedure.
--- NOTE | 2024-10-24 17:14 | PC.NURSE ---
Pt wearing brief at this time. No odor of stool and pt states it's been a while since last BM. This RN assumed care at 4 and there hasn't been a BM since then.
[2024-10-24 19:40] VITALS: BP 135/88; PULSE 96; RESP 17; TEMP 37.2; O2SAT 100
--- NOTE | 2024-10-24 20:06 | MHC.CARE ---
Pt's guardian was contacted when placement was secured and agreed to placement at [facility]. She was informed that pt would be transferred to the unit prior to 12AM and further follow up would occur as needed on the inpatient unit.
[2024-10-24] MEDS: Divalproex Sodium 250 MG TABLET.DR 750 MG PO (20:09)
[2024-10-24] MEDS: risperiDONE 2 MG TABLET PO (20:09)
[2024-10-24] MEDS: Benztropine Mesylate 1 MG TABLET PO (20:09)
[2024-10-24] MEDS: LORazepam 0.5 MG TABLET PO (20:09)
[2024-10-24] MEDS: Docusate Sodium 100 MG CAPSULE PO (20:12)
[2024-10-25 00:42] VITALS: BMI 23.9
[2024-10-25 00:43] VITALS: BP 145/82; PULSE 98; RESP 16; TEMP 36.7; O2SAT 100
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
[2024-10-25 08:00] VITALS: BP 127/91; PULSE 107; RESP 16; TEMP 36.6; O2SAT 100
[2024-10-25 08:07] LABS: Estimated Average Glucose 94 mg/dL; Hemoglobin A1C 110.6878 umol/L; Hemoglobin A1c % 4.9 % (<6.0); Total Hemoglobin (HGBA1C) 3657.5188 umol/L
[2024-10-25 08:15] LABS: Cholesterol 121 mg/dL (<200); HDL Cholesterol 36 mg/dL (>40); LDL Cholesterol Calculated 65 mg/dL (<100); Triglycerides 103 mg/dL (<150)
[2024-10-25 08:30] LABS: Free T4 (Free Thyroxine) 1.04 ng/dL (0.71-1.85); Thyroid Stimulating Hormone 3.47 uIU/mL (0.32-4.0)
[2024-10-25 08:44] LABS: Folate 11.1 ng/mL (> or = 4.0); Vitamin B12 481 pg/mL (200-900)
[2024-10-25] MEDS: polyethylene glycoL 3350 17 GM POWD.PACK PO (08:59)
[2024-10-25] MEDS: Loratadine 10 MG TABLET PO (09:00)
[2024-10-25] MEDS: Sennosides 8.6 MG TABLET PO (09:00)
[2024-10-25] MEDS: Docusate Sodium 100 MG CAPSULE PO (09:00)
[2024-10-25] MEDS: risperiDONE 2 MG TABLET PO ×3 (09:00→20:11)
[2024-10-25] MEDS: Thiamine HCL 100 MG TABLET PO (09:00)
[2024-10-25] MEDS: Benztropine Mesylate 1 MG TABLET PO ×2 (09:00→20:11)
[2024-10-25] MEDS: Divalproex Sodium 250 MG TABLET.DR 750 MG PO (09:00)
[2024-10-25 09:01] VITALS: BP 127/91
[2024-10-25] MEDS: lisinopriL 5 MG TABLET PO (09:01)
[2024-10-25] MEDS: LORazepam 0.5 MG TABLET PO ×3 (09:01→20:11)
[2024-10-25] MEDS: Cholecalciferol (Vitamin D3) 25 MCG TABLET PO (09:01)
[2024-10-25] MEDS: Artificial Tears 15 ML DROPS 4 DROP EYE-BOTH (09:03)
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
--- NOTE | 2024-10-25 19:14 | PC.NURSE ---
Kobi huffman'carlene start dose of Depakote 500 mg TID at 1911 with next dose due at 2099
[2024-10-25] MEDS: Divalproex Sodium 500 MG TABLET.DR PO ×2 (19:17→20:11)
[2024-10-25 20:00] VITALS: BP 141/80; PULSE 122; RESP 18; TEMP 36.1; O2SAT 100
[2024-10-25] MEDS: Melatonin 3 MG TABLET 9 MG PO (20:12)
[2024-10-25] MEDS: Acetaminophen 325 MG TABLET 650 MG PO (21:06)
[2024-10-25 22:28] VITALS: PULSE 92
[2024-10-26 02:38] VITALS: PULSE 100
[2024-10-26 07:00] VITALS: BMI 24.3
[2024-10-26 07:45] VITALS: BP 115/63; PULSE 160; RESP 12; TEMP 36.7; O2SAT 94
[2024-10-26 08:30] VITALS: BP 111/64; PULSE 110
[2024-10-26] MEDS: LORazepam 0.5 MG TABLET PO ×3 (08:35→20:13)
[2024-10-26] MEDS: Benztropine Mesylate 1 MG TABLET PO ×2 (08:35→20:13)
[2024-10-26 08:36] VITALS: BP 115/63
[2024-10-26] MEDS: Divalproex Sodium 500 MG TABLET.DR PO ×3 (08:36→20:13)
[2024-10-26] MEDS: Cholecalciferol (Vitamin D3) 25 MCG TABLET PO (08:36)
[2024-10-26] MEDS: risperiDONE 2 MG TABLET PO ×3 (08:36→20:13)
[2024-10-26] MEDS: Thiamine HCL 100 MG TABLET PO (08:36)
[2024-10-26] MEDS: Docusate Sodium 100 MG CAPSULE PO ×2 (08:36→20:13)
[2024-10-26] MEDS: Loratadine 10 MG TABLET PO (08:36)
[2024-10-26] MEDS: lisinopriL 5 MG TABLET PO (08:36)
[2024-10-26] MEDS: Sennosides 8.6 MG TABLET PO (08:37)
[2024-10-26] MEDS: polyethylene glycoL 3350 17 GM POWD.PACK PO (08:54)
[2024-10-26] MEDS: Ondansetron ODT 4 MG TAB.RAPDIS TRANSLINGU (14:49)
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
--- NOTE | 2024-10-26 19:49 | PC.NURSE ---
Spoke to Evangelina regarding patient glasses. Missing lens in glasses. Inquiring if patient has spare pair. Call placed after hours, Sultana to forward message.
[2024-10-26 20:00] VITALS: BP 134/79; PULSE 107; RESP 18; TEMP 36.7; O2SAT 100
[2024-10-26] MEDS: Melatonin 3 MG TABLET 9 MG PO (20:12)
[2024-10-27 04:24] VITALS: BP 128/76
[2024-10-27] MEDS: cloNIDine HCL 0.1 MG TABLET PO (04:24)
[2024-10-27] MEDS: hydrOXYzine HCL 25 MG TABLET PO (04:24)
[2024-10-27 08:26] VITALS: BP 130/88; PULSE 104; RESP 18; TEMP 36; O2SAT 99
[2024-10-27] MEDS: LORazepam 0.5 MG TABLET PO ×3 (08:33→21:56)
[2024-10-27] MEDS: Sennosides 8.6 MG TABLET PO (08:33)
[2024-10-27] MEDS: polyethylene glycoL 3350 17 GM POWD.PACK PO (08:33)
[2024-10-27] MEDS: Divalproex Sodium 500 MG TABLET.DR PO ×3 (08:34→21:56)
[2024-10-27] MEDS: risperiDONE 2 MG TABLET PO ×3 (08:34→21:56)
[2024-10-27] MEDS: Benztropine Mesylate 1 MG TABLET PO ×2 (08:34→21:56)
[2024-10-27] MEDS: Docusate Sodium 100 MG CAPSULE PO ×2 (08:34→21:56)
[2024-10-27] MEDS: Cholecalciferol (Vitamin D3) 25 MCG TABLET PO (08:34)
[2024-10-27] MEDS: Thiamine HCL 100 MG TABLET PO (08:34)
[2024-10-27] MEDS: lisinopriL 5 MG TABLET PO (08:34)
[2024-10-27] MEDS: Loratadine 10 MG TABLET PO (08:34)
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
[2024-10-27] MEDS: Melatonin 3 MG TABLET 9 MG PO (21:56)
[2024-10-28 07:57] VITALS: BP 117/57; PULSE 99; RESP 16; TEMP 36.6; O2SAT 99
[2024-10-28] MEDS: polyethylene glycoL 3350 17 GM POWD.PACK PO (08:47)
[2024-10-28] MEDS: Loratadine 10 MG TABLET PO (08:48)
[2024-10-28] MEDS: LORazepam 0.5 MG TABLET PO ×3 (08:48→21:05)
[2024-10-28] MEDS: Benztropine Mesylate 1 MG TABLET PO ×2 (08:48→21:05)
[2024-10-28] MEDS: Sennosides 8.6 MG TABLET PO (08:48)
[2024-10-28] MEDS: risperiDONE 2 MG TABLET PO ×3 (08:49→21:05)
[2024-10-28] MEDS: Cholecalciferol (Vitamin D3) 25 MCG TABLET PO (08:49)
[2024-10-28] MEDS: Docusate Sodium 100 MG CAPSULE PO ×2 (08:49→21:05)
[2024-10-28] MEDS: Divalproex Sodium 500 MG TABLET.DR PO ×3 (08:49→21:05)
[2024-10-28] MEDS: Thiamine HCL 100 MG TABLET PO (08:49)
[2024-10-28 09:28] VITALS: BP 119/65; PULSE 114
[2024-10-28] MEDS: lisinopriL 5 MG TABLET PO (09:29)
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
[2024-10-28 20:00] VITALS: BP 124/80; PULSE 114; TEMP 35.9; O2SAT 100
[2024-10-28] MEDS: Melatonin 3 MG TABLET 9 MG PO (21:05)
[2024-10-28] MEDS: Acetaminophen 325 MG TABLET 650 MG PO (21:33)
[2024-10-29] MEDS: traZODone HCL 50 MG TABLET PO ×2 (02:50→20:24)
[2024-10-29 08:00] VITALS: BP 109/59; PULSE 100; RESP 16; TEMP 36.5; O2SAT 96
[2024-10-29] MEDS: Sennosides 8.6 MG TABLET PO (08:32)
[2024-10-29] MEDS: polyethylene glycoL 3350 17 GM POWD.PACK PO (08:32)
[2024-10-29] MEDS: LORazepam 0.5 MG TABLET PO ×3 (08:32→20:24)
[2024-10-29] MEDS: Divalproex Sodium 500 MG TABLET.DR PO ×3 (08:32→20:23)
[2024-10-29] MEDS: Benztropine Mesylate 1 MG TABLET PO ×2 (08:33→20:23)
[2024-10-29] MEDS: risperiDONE 2 MG TABLET PO ×3 (08:33→20:24)
[2024-10-29] MEDS: Thiamine HCL 100 MG TABLET PO (08:33)
[2024-10-29] MEDS: Cholecalciferol (Vitamin D3) 25 MCG TABLET PO (08:33)
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
[2024-10-29] MEDS: lisinopriL 5 MG TABLET PO (08:34)
[2024-10-29] MEDS: Loratadine 10 MG TABLET PO (08:34)
[2024-10-29] MEDS: Docusate Sodium 100 MG CAPSULE PO ×2 (08:34→20:24)
[2024-10-29] MEDS: Acetaminophen 325 MG TABLET 650 MG PO (10:12)
[2024-10-29 20:00] VITALS: BP 125/85; PULSE 115; RESP 16; TEMP 36.6; O2SAT 99
[2024-10-29 20:13] LABS: MANUAL DIFF FLAG NO
[2024-10-29 20:16] LABS: Basophils Absolute Auto 0.1 X10*3/uL (0.0-0.2); Basophils Percent Auto 0.8 % (0-2); Eosinophils Absolute Auto 1.3 X10*3/uL (0.0-0.4); Eosinophils Percent Auto 18.3 % (0-4); Hemoglobin 12.9 g/dl (14.0-18.0); Imm Gran Abs Auto 0.03 X10*3/uL (0.00-0.03); Imm Gran Pct Auto 0.4 % (0.0-0.4); Lymphocytes Absolute Auto 1.6 X10*3/uL (1.2-4.9); Lymphocytes Percent Auto 21.8 % (20-40); Mean Corpuscular HGB Conc 33.1 g/dl (31.0-36.0); Mean Corpuscular Volume 93.8 fL (80.0-98.0); Monocytes Absolute Auto 1.2 X10*3/uL (0.1-1.2); Monocytes Percent Auto 16.7 % (2-11); Platelet Count 228 X10*3/uL (160-400); Red Blood Count 4.16 X10*6/uL (4.60-5.80); Red Cell Distribution Width 13.6 % (11.0-16.0); White Blood Count 7.3 X10*3/uL (4.8-10.8)
[2024-10-29 20:23] LABS: Ammonia 30 umol/L (13-55)
[2024-10-29] MEDS: Melatonin 3 MG TABLET 9 MG PO (20:23)
[2024-10-29] MEDS: hydrOXYzine HCL 25 MG TABLET PO (20:23)
[2024-10-29] MEDS: Artificial Tears 15 ML DROPS 4 DROP EYE-BOTH (20:23)
[2024-10-29 20:24] VITALS: BP 125/85
[2024-10-29] MEDS: cloNIDine HCL 0.1 MG TABLET PO (20:24)
[2024-10-29 20:29] LABS: Alanine Aminotransferase 36 U/L (0-40); Albumin Level 4.1 g/dL (3.5-5.0); Alkaline Phosphatase 51 U/L (39-117); Anion Gap 12 (12-20); Aspartate Amino Transferase 36 U/L (5-37); Bilirubin Direct < 0.2 mg/dL (0.0-0.5); Bilirubin Total 0.2 mg/dL (0.0-1.0); Blood Urea Nitrogen 12 mg/dL (9-16); Calcium 9.2 mg/dL (8.4-10.2); Carbon Dioxide 30 mmol/L (22-29); Chloride 101 mmol/L (96-108); Creatinine Clr Calc Pharmacy 115.6; Estimated Glomerular Filt Rate > 60; Glucose Random 97 mg/dL (60-115); Potassium 4.3 mmol/L (3.3-5.1); Sodium 139 mmol/L (135-145); Total Protein 7.1 g/dL (6.5-8.0)
[2024-10-30 08:00] VITALS: BP 114/58; PULSE 110; TEMP 36.7; O2SAT 96
[2024-10-30 08:42] VITALS: BP 114/58
[2024-10-30] MEDS: lisinopriL 5 MG TABLET PO (08:42)
[2024-10-30] MEDS: LORazepam 0.5 MG TABLET PO ×2 (08:43→21:26)
[2024-10-30] MEDS: Divalproex Sodium 500 MG TABLET.DR PO ×3 (08:43→21:28)
[2024-10-30] MEDS: Docusate Sodium 100 MG CAPSULE PO ×2 (08:43→21:26)
[2024-10-30] MEDS: Cholecalciferol (Vitamin D3) 25 MCG TABLET PO (08:43)
[2024-10-30] MEDS: Thiamine HCL 100 MG TABLET PO (08:43)
[2024-10-30] MEDS: Sennosides 8.6 MG TABLET PO (08:44)
[2024-10-30] MEDS: risperiDONE 2 MG TABLET PO (08:44)
[2024-10-30] MEDS: Benztropine Mesylate 1 MG TABLET PO ×3 (08:44→21:28)
[2024-10-30] MEDS: Loratadine 10 MG TABLET PO (08:44)
[2024-10-30] MEDS: polyethylene glycoL 3350 17 GM POWD.PACK PO (08:48)
[2024-10-30] MEDS: risperiDONE 0.5 MG TABLET 2.5 MG PO ×2 (15:08→21:27)
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
[2024-10-30 20:00] VITALS: BP 117/70; PULSE 67; RESP 16; TEMP 37.4; O2SAT 99
[2024-10-30] MEDS: traZODone HCL 50 MG TABLET PO (21:26)
[2024-10-30] MEDS: Melatonin 3 MG TABLET 9 MG PO (21:26)
[2024-10-30] MEDS: hydrOXYzine HCL 25 MG TABLET PO (21:26)
[2024-10-30 21:28] VITALS: BP 142/73
[2024-10-30] MEDS: cloNIDine HCL 0.1 MG TABLET PO (21:28)
[2024-10-31 07:45] VITALS: BP 120/74; PULSE 99; RESP 14; TEMP 36.6; O2SAT 97
[2024-10-31] MEDS: Divalproex Sodium 500 MG TABLET.DR PO ×3 (08:37→20:28)
[2024-10-31] MEDS: Thiamine HCL 100 MG TABLET PO (08:37)
[2024-10-31] MEDS: Benztropine Mesylate 1 MG TABLET PO ×3 (08:38→20:28)
[2024-10-31] MEDS: Cholecalciferol (Vitamin D3) 25 MCG TABLET PO (08:38)
[2024-10-31] MEDS: LORazepam 0.5 MG TABLET PO (08:38)
[2024-10-31] MEDS: lisinopriL 5 MG TABLET PO (08:38)
[2024-10-31] MEDS: risperiDONE 0.5 MG TABLET 2.5 MG PO (08:39)
[2024-10-31] MEDS: Docusate Sodium 100 MG CAPSULE PO ×2 (08:40→20:28)
[2024-10-31] MEDS: polyethylene glycoL 3350 17 GM POWD.PACK PO (08:40)
[2024-10-31] MEDS: Loratadine 10 MG TABLET PO (08:40)
[2024-10-31] MEDS: Sennosides 8.6 MG TABLET PO (08:41)
[2024-10-31] MEDS: risperiDONE 1 MG TABLET 2.5 MG PO ×2 (15:15→20:27)
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
[2024-10-31] MEDS: Acetaminophen 325 MG TABLET 650 MG PO (18:13)
[2024-10-31 20:00] VITALS: BP 134/84; PULSE 110; RESP 16; TEMP 36.6; O2SAT 96
[2024-10-31] MEDS: Melatonin 3 MG TABLET 9 MG PO (20:27)
[2024-10-31] MEDS: hydrOXYzine HCL 25 MG TABLET PO (20:27)
[2024-11-01 08:00] VITALS: BP 123/66; PULSE 106; RESP 16; TEMP 37; O2SAT 100
[2024-11-01] MEDS: Benztropine Mesylate 1 MG TABLET PO ×3 (09:13→20:41)
[2024-11-01] MEDS: Thiamine HCL 100 MG TABLET PO (09:13)
[2024-11-01] MEDS: Sennosides 8.6 MG TABLET PO (09:14)
[2024-11-01] MEDS: Loratadine 10 MG TABLET PO (09:14)
[2024-11-01] MEDS: Docusate Sodium 100 MG CAPSULE PO ×2 (09:14→20:42)
[2024-11-01 09:15] VITALS: BP 136/74
[2024-11-01] MEDS: Cholecalciferol (Vitamin D3) 25 MCG TABLET PO (09:15)
[2024-11-01] MEDS: lisinopriL 5 MG TABLET PO (09:15)
[2024-11-01] MEDS: Divalproex Sodium 500 MG TABLET.DR PO ×3 (09:16→20:41)
[2024-11-01] MEDS: risperiDONE 1 MG TABLET 2.5 MG PO ×3 (09:16→20:41)
[2024-11-01] MEDS: polyethylene glycoL 3350 17 GM POWD.PACK PO (09:20)
[2024-11-01] MEDS: Artificial Tears 15 ML DROPS 4 DROP EYE-BOTH (13:21)
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
[2024-11-01 20:00] VITALS: BP 132/72; PULSE 111; RESP 16; TEMP 37.1; O2SAT 98
[2024-11-01] MEDS: Melatonin 3 MG TABLET 9 MG PO (20:41)
[2024-11-02 07:00] VITALS: BMI 26.1
[2024-11-02 09:12] VITALS: BP 122/70; PULSE 100; RESP 16; TEMP 36.6; O2SAT 99
[2024-11-02] MEDS: Benztropine Mesylate 1 MG TABLET PO ×3 (09:36→22:10)
[2024-11-02] MEDS: Sennosides 8.6 MG TABLET PO (09:36)
[2024-11-02] MEDS: Loratadine 10 MG TABLET PO (09:36)
[2024-11-02] MEDS: lisinopriL 5 MG TABLET PO (09:37)
[2024-11-02] MEDS: Docusate Sodium 100 MG CAPSULE PO ×2 (09:37→21:23)
[2024-11-02] MEDS: Cholecalciferol (Vitamin D3) 25 MCG TABLET PO (09:37)
[2024-11-02] MEDS: risperiDONE 1 MG TABLET 2.5 MG PO ×3 (09:37→21:24)
[2024-11-02] MEDS: Divalproex Sodium 500 MG TABLET.DR PO ×3 (09:37→21:23)
[2024-11-02] MEDS: Thiamine HCL 100 MG TABLET PO (09:37)
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
[2024-11-02] MEDS: Artificial Tears 15 ML DROPS 4 DROP EYE-BOTH (15:22)
[2024-11-02] MEDS: Melatonin 3 MG TABLET 9 MG PO (21:24)
[2024-11-02 23:04] VITALS: BP 90/54; PULSE 84; RESP 18; TEMP 36.6; O2SAT 97
[2024-11-03 07:10] VITALS: BP 134/69; PULSE 95; RESP 14; TEMP 36.9; O2SAT 98
[2024-11-03] MEDS: Cholecalciferol (Vitamin D3) 25 MCG TABLET PO (10:27)
[2024-11-03] MEDS: Divalproex Sodium 500 MG TABLET.DR PO ×3 (10:28→20:33)
[2024-11-03] MEDS: Benztropine Mesylate 1 MG TABLET PO ×3 (10:28→20:32)
[2024-11-03] MEDS: Sennosides 8.6 MG TABLET PO (10:28)
[2024-11-03] MEDS: Loratadine 10 MG TABLET PO (10:28)
[2024-11-03 10:29] VITALS: BP 132/84
[2024-11-03] MEDS: Thiamine HCL 100 MG TABLET PO (10:29)
[2024-11-03] MEDS: Docusate Sodium 100 MG CAPSULE PO ×2 (10:29→20:33)
[2024-11-03] MEDS: lisinopriL 5 MG TABLET PO (10:29)
[2024-11-03] MEDS: risperiDONE 1 MG TABLET 2.5 MG PO ×3 (10:30→20:31)
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
--- NOTE | 2024-11-03 17:05 | MHC.SL.SWA ---
Speech Pathologist Impression: Risk of Aspiration d/t Cog Status Risk of Aspiration Due to: Reduced Cognition Dysphasia Diet Status: Downgrade NDD3/THIN Liquid Consistency and Strategies for Safe Swallow: Liquid Intake Recommendation: Thin Liquid Intake Strategies: Unrestricted Solid Food Consistency: Dietary Recommendations: Chopped/Advanced (NDD3) Additional Modifications to Solid Foods: Recommend start on CHOPPED/ADVANCED (NDD3) solids and THIN liquids, pills WHOLE in LIQUID. Patient requires 1:1 supervision during meal time and cues for safe eating behaviors: take small bites, chew food well, clear oral cavity of bolus before taking more bites, alternate with sips of liquid. Oral Medication Intake: Whole with Liquid Please contact the pharmacy regarding appropriate crushable or liquid drug formulations that are available whenever modified delivery is recommended. Compensatory Strategies and Precautions to be Taken for Safe Swallow: Sitting Upright (90 deg) Small Bites and Sips Alternate Liquids/Solids Rate of Ingestion Change Supervision While Eating and Drinking for Safe Swallow: Total Supervision (1:1) Swallowing Recommended Treatments: Compens. Strategy Educat. Recommendation for Speech: Inpatient Speech Therapy Comment: 1 f/u Social Service Assistant Clinican/Clinical Fellow: No Supervisory Statement: I have reviewed and agree with the student/clinical fellow's documentation: N/A Speech Language Pathologist: Maura Day M.A., CCC-FORENSIC SCIENCE TECHNICIAN
[2024-11-03 20:00] VITALS: BP 118/73; PULSE 100; RESP 16; TEMP 36.3; O2SAT 100
[2024-11-03] MEDS: Melatonin 3 MG TABLET 9 MG PO (20:31)
[2024-11-04 07:39] VITALS: BP 111/63; PULSE 101; RESP 16; TEMP 36.8; O2SAT 97
[2024-11-04] MEDS: polyethylene glycoL 3350 17 GM POWD.PACK PO (08:32)
[2024-11-04] MEDS: risperiDONE 1 MG TABLET 2.5 MG PO ×3 (08:33→20:24)
[2024-11-04] MEDS: Divalproex Sodium 500 MG TABLET.DR PO ×3 (08:34→20:25)
[2024-11-04] MEDS: Sennosides 8.6 MG TABLET PO (08:34)
[2024-11-04] MEDS: Loratadine 10 MG TABLET PO (08:34)
[2024-11-04] MEDS: Cholecalciferol (Vitamin D3) 25 MCG TABLET PO (08:34)
[2024-11-04] MEDS: Thiamine HCL 100 MG TABLET PO (08:34)
[2024-11-04] MEDS: Benztropine Mesylate 1 MG TABLET PO ×3 (08:34→20:25)
[2024-11-04] MEDS: lisinopriL 5 MG TABLET PO (08:34)
[2024-11-04] MEDS: Docusate Sodium 100 MG CAPSULE PO ×2 (08:34→20:25)
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
[2024-11-04 20:00] VITALS: BP 132/64; PULSE 100; RESP 16; TEMP 36.8; O2SAT 98
[2024-11-04] MEDS: Melatonin 3 MG TABLET 9 MG PO (20:23)
[2024-11-05] MEDS: hydrOXYzine HCL 25 MG TABLET PO (01:43)
[2024-11-05] MEDS: traZODone HCL 50 MG TABLET PO (01:43)
[2024-11-05 08:00] VITALS: BP 135/83; PULSE 104; RESP 16; TEMP 36.7; O2SAT 97
[2024-11-05] MEDS: Loratadine 10 MG TABLET PO (08:53)
[2024-11-05] MEDS: risperiDONE 1 MG TABLET 2.5 MG PO ×3 (08:53→20:20)
[2024-11-05] MEDS: Benztropine Mesylate 1 MG TABLET PO ×3 (08:54→20:21)
[2024-11-05] MEDS: Cholecalciferol (Vitamin D3) 25 MCG TABLET PO (08:55)
[2024-11-05] MEDS: Sennosides 8.6 MG TABLET PO (08:55)
[2024-11-05] MEDS: Docusate Sodium 100 MG CAPSULE PO ×2 (08:55→20:22)
[2024-11-05] MEDS: Divalproex Sodium 500 MG TABLET.DR PO ×3 (08:55→20:21)
[2024-11-05] MEDS: Thiamine HCL 100 MG TABLET PO (08:55)
[2024-11-05 08:56] VITALS: BP 136/83
[2024-11-05] MEDS: lisinopriL 5 MG TABLET PO (08:56)
[2024-11-05] MEDS: polyethylene glycoL 3350 17 GM POWD.PACK PO (08:57)
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
[2024-11-05 20:00] VITALS: BP 131/88; PULSE 100; RESP 16; TEMP 36.6; O2SAT 100
[2024-11-05] MEDS: Melatonin 3 MG TABLET 9 MG PO (20:21)
[2024-11-05 21:02] LABS: Ammonia 36 umol/L (13-55); Valproate 72.6 mcg/mL (50.0-100.0)
[2024-11-05 21:05] LABS: Alanine Aminotransferase 48 U/L (0-40); Alkaline Phosphatase 46 U/L (39-117); Anion Gap 12 (12-20); Aspartate Amino Transferase 39 U/L (5-37); Bilirubin Direct < 0.2 mg/dL (0.0-0.5); Bilirubin Total 0.2 mg/dL (0.0-1.0); Blood Urea Nitrogen 17 mg/dL (9-16); Calcium 8.7 mg/dL (8.4-10.2); Carbon Dioxide 27 mmol/L (22-29); Chloride 100 mmol/L (96-108); Creatinine Clr Calc Pharmacy 104.9; Estimated Glomerular Filt Rate > 60; Glucose Random 101 mg/dL (60-115); Potassium 4.3 mmol/L (3.3-5.1); Sodium 135 mmol/L (135-145); Total Protein 6.9 g/dL (6.5-8.0)
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
[2024-11-06 07:43] VITALS: BP 118/71; PULSE 98; RESP 16; TEMP 36.9; O2SAT 100
[2024-11-06] MEDS: risperiDONE 1 MG TABLET 2.5 MG PO (09:02)
[2024-11-06] MEDS: polyethylene glycoL 3350 17 GM POWD.PACK PO (09:02)
[2024-11-06] MEDS: Docusate Sodium 100 MG CAPSULE PO (09:02)
[2024-11-06] MEDS: lisinopriL 5 MG TABLET PO (09:02)
[2024-11-06] MEDS: Divalproex Sodium 500 MG TABLET.DR PO (09:02)
[2024-11-06] MEDS: Loratadine 10 MG TABLET PO (09:03)
[2024-11-06] MEDS: Benztropine Mesylate 1 MG TABLET PO (09:03)
[2024-11-06] MEDS: Cholecalciferol (Vitamin D3) 25 MCG TABLET PO (09:03)
[2024-11-06] MEDS: Sennosides 8.6 MG TABLET PO (09:03)
[2024-11-06] MEDS: Thiamine HCL 100 MG TABLET PO (09:03)
--- NOTE | 2024-11-06 09:54 | PM.NEUROCN ---
History of Present Illness Data of Consult Service Date: 11/06/24 Primary Care Provider: Unknown Physician HPI Reason for consult: Encephalopathy 53 years old man who was history was obtained mostly from the chart and some from him. He said that he was bone in [facility] and went to a school there up to 9 grades. He was brought to hospital initially with diarrhea and then was later noted to be with multiple behavioral problems. Precise past medical history or childhood history was not available. There was no history of seizure disorder. He was showing some signs of aggressive behavior and multiple medicines were tried. This consultation was requested to rule out any cold degenerative process explaining his symptoms. Review of Systems Review of Systems: Is not suffering from any cold or flu-like illness and did not have any obvious physical complain of headache. No complain of dizziness or loss of consciousness PMFSH Past Medical History Medical History (Updated 10/25/24 @ 19:06 by Kobi Jordan MD) TBI (traumatic brain injury) Intellectual disability Autism Social History Social History Household Members: Other Household Members Other:: skilled nursing peers Housing Other:: [facility] Do you presently have visiting nurse or other home services: No Alcohol intake: unknown Patient Tobacco Use Status: Never used Tobacco service: No Sexual orientation: Don't Know Meds Allergies Allergy/AdvReac Type Severity Reaction Status Date / Time atenolol [From Tenormin] Allergy Unknown Verified 10/23/24 21:47 hydrochlorothiazide Allergy Unknown Verified 10/23/24 21:47 paprika Allergy Unknown Verified 10/25/24 00:41 Active Medications: Current Medications Acetaminophen (Acetaminophen 325 Mg Tablet) 650 mg PO Q6H PRN PRN Reason: pain (pain scale 0-10)or fever Last Admin: 10/31/24 18:13 Dose: 650 mg Al Hydroxide/Mg Hydroxide (Magnesium Hydrox/Alum Hydrox 30 Ml Oral.Susp) 30 ml PO Q6H PRN PRN Reason: Heartburn/Nausea Artificial Tears (Artificial Tears 15 Ml Drops) 4 drop EYE-BOTH Q6H PRN PRN Reason: Dry Eyes Last Admin: 11/02/24 15:22 Dose: 4 drop Benztropine Mesylate (Benztropine Mesylate 1 Mg Tablet) 1 mg PO TID SHERRELL Last Admin: 11/06/24 09:03 Dose: 1 mg Bisacodyl (Bisacodyl 10 Mg Supp.Rect) 10 mg ID Q8H PRN PRN Reason: no bm after giving m.o.m Clonidine HCl (Clonidine Hcl 0.1 Mg Tablet) 0.1 mg PO BEDTIME PRN; Protocol PRN Reason: Insomnia Last Admin: 10/30/24 21:28 Dose: 0.1 mg Divalproex Sodium (Divalproex Sodium 500 Mg Tablet.Dr) 500 mg PO TID [facility] Last Admin: 11/06/24 09:02 Dose: 500 mg Docusate Sodium (Docusate Sodium 100 Mg Capsule) 100 mg PO BID [facility] Last Admin: 11/06/24 09:02 Dose: 100 mg Hydroxyzine HCl (Hydroxyzine Hcl 25 Mg Tablet) 25 mg PO Q6H PRN PRN Reason: Anxiety Last Admin: 11/05/24 01:43 Dose: 25 mg Lisinopril (Lisinopril 5 Mg Tablet) 5 mg PO DAILY [facility]; Protocol Last Admin: 11/06/24 09:02 Dose: 5 mg Loratadine (Loratadine 10 Mg Tablet) 10 mg PO DAILY [facility] Last Admin: 11/06/24 09:03 Dose: 10 mg Magnesium Hydroxide (Milk Of Magnesia 30 Ml Oral.Susp) 30 ml PO DAILY PRN PRN Reason: Constipation Melatonin (Melatonin 3 Mg Tablet) 9 mg PO BEDTIME [facility] Last Admin: 11/05/24 20:21 Dose: 9 mg Ondansetron HCl (Ondansetron Odt 4 Mg Tab.Rapdis) 4 mg TRANSLINGU Q6H PRN PRN Reason: Nausea and Vomiting Last Admin: 10/26/24 14:49 Dose: 4 mg Polyethylene Glycol (Polyethylene Glycol 3350 17 Gm Powd.Pack) 17 gm PO DAILY [facility] Last Admin: 11/06/24 09:02 Dose: 17 gm Risperidone (Risperidone 1 Mg Tablet) 2.5 mg PO TID [facility] Last Admin: 11/06/24 09:02 Dose: 2.5 mg Senna (Sennosides 8.6 Mg Tablet) 8.6 mg PO DAILY [facility] Last Admin: 11/06/24 09:03 Dose: 8.6 mg Thiamine HCl (Thiamine Hcl 100 Mg Tablet) 100 mg PO DAILY [facility] Last Admin: 11/06/24 09:03 Dose: 100 mg Trazodone HCl (Trazodone Hcl 50 Mg Tablet) 50 mg PO BEDTIME MRX1 PRN PRN Reason: Insomnia Last Admin: 11/05/24 01:43 Dose: 50 mg Vitamin D (Cholecalciferol (Vitamin D3) 25 Mcg Tablet) 25 mcg PO DAILY [facility] Last Admin: 11/06/24 09:03 Dose: 25 mcg Home Medications ?Medication ?Instructions ?Recorded ?Confirmed ?Last Taken ?Type benztropine 1 mg tablet 1 mg PO BID 08/07/24 10/24/24 Unknown History carboxymethylcellulose sodium 0.5 4 drp ophthalmic (eye) Q4H PRN Dry 08/07/24 10/24/24 Unknown History % eye drops (Refresh Tears) Eyes cholecalciferol (vitamin D3) 25 25 mcg PO DAILY 08/07/24 10/24/24 Unknown History mcg (1,000 unit) tablet clonidine HCl 0.1 mg tablet 0.1 mg PO BEDTIME PRN Insomnia 08/07/24 10/24/24 Unknown History docusate sodium 100 mg capsule 100 mg PO BID 08/07/24 10/24/24 Unknown History loratadine 10 mg tablet 10 mg PO DAILY 08/07/24 10/24/24 Unknown History melatonin 10 mg tablet 10 mg PO BEDTIME Sleep 08/07/24 10/24/24 Unknown History thiamine HCl (vitamin B1) 100 mg 100 mg PO DAILY 08/07/24 10/24/24 Unknown History tablet acetaminophen 650 mg 650 mg PO Q4H PRN FEVER/PAIN 10/24/24 10/24/24 Unknown History tablet,extended release divalproex 500 mg tablet,extended 1,000 mg PO BEDTIME 10/24/24 10/24/24 Unknown History release 24 hr lisinopril 5 mg tablet 5 mg PO DAILY 10/24/24 10/24/24 Unknown History lorazepam 1 mg tablet 1 mg PO BID 10/24/24 10/24/24 Unknown History lorazepam 1 mg tablet 1 mg PO BID PRN Anxiety 10/24/24 10/24/24 Unknown History risperidone 0.5 mg tablet 0.5 mg PO BID PRN Agitation 10/24/24 10/24/24 Unknown History risperidone 1 mg tablet 1 mg PO DAILY 10/24/24 10/24/24 Unknown History risperidone 2 mg tablet 2 mg PO BEDTIME 10/24/24 10/24/24 Unknown History trazodone 50 mg tablet 25 mg PO BEDTIME PRN Insomnia 10/24/24 10/24/24 Unknown History Physical Exam Vital Signs: Vital Signs: Last Vital Signs Temp 98.4 F 11/06/24 07:43 Pulse 98 11/06/24 07:43 Resp 16 11/06/24 07:43 BP 118/71 11/06/24 07:43 Pulse Ox 100 11/06/24 07:43 O2 Del Method Room Air 11/06/24 07:43 BMI result Body Mass Index 26.1 Neuro: Other: he is alert and awake and was walking around when I saw him. He was able to sit down quietly and answer some questions. Speech was somewhat childish. He did not know where he was. He was following one-step commands. Frequently he was Repeating what I was saying. Facial expression was somewhat diminished. Speech was somewhat monotonous. There was no obvious arm or leg weakness. Deep tendon reflexes were trace. There was no significant tremor. Results Labs 10/29/24 19:57 11/05/24 20:09 Labs: BMP 11/05/24 20:09 Sodium 135 Potassium 4.3 Chloride 100 Carbon Dioxide 27 BUN 17 H Creatinine 0.86 Calcium 8.7 Liver Function 11/05/24 Range/Units 20:09 Total Bilirubin 0.2 (0.0-1.0) mg/dL Direct Bilirubin < 0.2 (0.0-0.5) mg/dL AST 39 H (5-37) U/L ALT 48 H (0-40) U/L Alkaline Phosphatase 46 (39-117) U/L Albumin 4.0 (3.5-5.0) g/dL His noncontrast head CT did not reveal any significant acute or chronic abnormality other than somewhat generous ventricular size for his age group. Assessment and Plan (1) Autism: Status: Acute 53 years old man who has primary issue seems to be an autism type disorder with multiple behavioral symptoms. I am not suspecting primary neurological or at least treatable neurological disorder. Symptomatic treatment is recommended. Procedures Date of Service Date of Service: 11/06/24
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
[2024-11-06] MEDS: Artificial Tears 15 ML DROPS 4 DROP EYE-BOTH (13:41)
== END 2024-11-06 13:50 | disposition home or self-care (01) | DRG 885 ==
LOC: HO.ED 10-24 00:12 → HO.PADLT16 10-24 18:00
PROVIDERS: Emergency Medicine Emergency Medical Services; Social Worker; Admitting Provider Psychiatry & Neurology Psychiatry; Emergency Provider Emergency Medicine; Visit Provider Psychiatry & Neurology Psychiatry
DX: F25.9 Schizoaffective disorder, unspecified (principal); R45.851 Suicidal ideations; F84.0 Autistic disorder; F79 Unspecified intellectual disabilities; S06.9XAS Unspecified intracranial injury with loss of consciousness status unknown, sequela; F06.30 Mood disorder due to known physiological condition, unspecified; X58.XXXS Exposure to other specified factors, sequela; Z79.899 Other long term (current) drug therapy
CPT/HCPCS: 36415; 70450; 80048; 80053; 80061; 80076; 80143; 80164; 80179; 80307; 81001; 82140; 82607; 82746; 83036; 84439; 84443; 85025; 87493; 87507; 92610; 99285; S9485

== ENCOUNTER → 2024-10-23 22:39 | Outpatient (BNV) | payer MEDICARE, MEDICAID, SELFPAY | PROVIDERS: Emergency Provider Emergency Medicine; Visit Provider Social Worker | DX: F25.9 Schizoaffective disorder, unspecified (principal); F84.0 Autistic disorder; F79 Unspecified intellectual disabilities; S06.9XAA Unspecified intracranial injury with loss of consciousness status unknown, initial encounter | CPT/HCPCS: 90792; 99231; 99232 ==

== ENCOUNTER 2024-10-24 16:02 | Outpatient (BNV) | payer MEDICARE, MEDICAID, SELFPAY | END 2024-11-03 14:03 | PROVIDERS: Admitting Provider Psychiatry & Neurology Psychiatry; Emergency Provider Emergency Medicine; Visit Provider Radiology Diagnostic Radiology | DX: G31.84 Mild cognitive impairment of uncertain or unknown etiology (principal) | CPT/HCPCS: 70450 ==

== ENCOUNTER 2024-10-24 16:02 | Outpatient (BNV) | payer MEDICARE, MEDICAID, SELFPAY | END 2024-10-24 17:02 | PROVIDERS: Admitting Provider Psychiatry & Neurology Psychiatry; Emergency Provider Emergency Medicine; Visit Provider Nuclear Medicine | DX: F06.30 Mood disorder due to known physiological condition, unspecified (principal); S06.9XAS Unspecified intracranial injury with loss of consciousness status unknown, sequela | CPT/HCPCS: 70450 ==

== ENCOUNTER → 2024-10-24 16:02 | Outpatient (BNV) | payer MEDICARE, MEDICAID, SELFPAY | PROVIDERS: Admitting Provider Psychiatry & Neurology Psychiatry; Emergency Provider Emergency Medicine; Visit Provider Psychiatry & Neurology Neurology | DX: F84.0 Autistic disorder (principal) | CPT/HCPCS: 99222 ==

== ENCOUNTER 2024-11-06 15:37 | Emergency (ER) | payer MEDICARE, MEDICAID, SELFPAY ==
--- NOTE | ~2024-11-06 | XR_ITS ---
CLINICAL HISTORY: L foot swelling 3 view left foot Comparison: None Findings: No fractures or dislocations. No significant arthritic change or erosions. No ankle effusion. No radiopaque foreign body. IMPRESSION: Prominent soft tissue swelling. No soft tissue gas, foreign body, or fracture. This document has been electronically signed by: Eh Pacheco MD on 11/07/2024 02:21:58
--- NOTE | ~2024-11-06 | XR_ITS ---
CLINICAL HISTORY: Rt shoulder pain and limited ROM 2 view right shoulder Comparison: None Findings: No fractures or dislocations. No significant arthritic change. No erosions. No radiopaque foreign body. IMPRESSION: Calcification adjacent to the greater tuberosity. Likely calcific tendinitis of the rotator cuff. This document has been electronically signed by: Eh Pacheco MD on 11/07/2024 02:28:59
[2024-11-06 15:43] VITALS: BP 131/82; PULSE 98; RESP 18; TEMP 36.6; O2SAT 100; BMI 24.4
--- NOTE | 2024-11-06 15:57 | ED.PSYCH ---
HPI - Psych General Chief Complaint: Behavioral Concerns Stated Complaint: JUST DC'D, BEHAVIORAL FROM [facility] PER EMS Time Seen by Provider: 11/06/24 15:45 Source: patient, EMS and old records reviewed Mode of arrival: EMS Limitations: other (poor historian) History of Present Illness ED Provider: HORACE HPI Narrative: 53 yo male with PMH of TBI, autism, intellectual disability, depression, mood disorder, schizoaffective disorder just left inpatient and was going back to senior living they refused entry. No events at senior living per PD. He was calm and quiet. He has no complaints. Has not had any violent outbursts today. CARE team aware on arrival MD complaint: other Onset (ago): hour(s) (1) Duration: constant History of same: No Relieving factors: none Exacerbating factors: none Context: other (refused admission into senior living no events) Associated psychiatric symptoms: none Associated symptoms: denies other symptoms Treatments prior to arrival: none Related Data Home Medications ?Medication ?Instructions ?Recorded ?Confirmed benztropine 1 mg tablet 1 mg PO BID 08/07/24 11/06/24 carboxymethylcellulose sodium 0.5 4 drp ophthalmic (eye) Q4H PRN Dry 08/07/24 11/06/24 % eye drops (Refresh Tears) Eyes cholecalciferol (vitamin D3) 25 25 mcg PO DAILY 08/07/24 11/06/24 mcg (1,000 unit) tablet clonidine HCl 0.1 mg tablet 0.1 mg PO BEDTIME PRN Insomnia 08/07/24 11/06/24 docusate sodium 100 mg capsule 100 mg PO BID 08/07/24 11/06/24 loratadine 10 mg tablet 10 mg PO DAILY 08/07/24 11/06/24 melatonin 10 mg tablet 10 mg PO BEDTIME Sleep 08/07/24 11/06/24 thiamine HCl (vitamin B1) 100 mg 100 mg PO DAILY 08/07/24 11/06/24 tablet acetaminophen 650 mg 650 mg PO Q4H PRN FEVER/PAIN 10/24/24 11/06/24 tablet,extended release lisinopril 5 mg tablet 5 mg PO DAILY 10/24/24 11/06/24 risperidone 0.5 mg tablet 0.5 mg PO BID PRN Agitation 10/24/24 11/06/24 Previous Rx's ?Medication ?Instructions ?Recorded bisacodyl 10 mg rectal suppository 10 mg VT Q8H PRN no bm after 11/06/24 (Gentle Laxative (bisacodyl)) giving m.o.m #0 ea divalproex 500 mg tablet,delayed 500 mg PO TID 30 days #90 tabs 11/06/24 release polyethylene glycol 3350 17 gram 17 g PO DAILY #0 ea 11/06/24 oral powder packet risperidone 1 mg tablet 2.5 mg (2.5 x 1 mg) PO TID 30 days 11/06/24 #225 tabs sennosides 8.6 mg tablet (Senna 8.6 mg PO DAILY #0 tabs 11/06/24 Lax) trazodone 50 mg tablet 50 mg PO BEDTIME PRN Insomnia 30 11/06/24 days #30 tabs Allergies Allergy/AdvReac Type Severity Reaction Status Date / Time atenolol [From Tenormin] Allergy Unknown Verified 11/06/24 15:53 hydrochlorothiazide Allergy Unknown Verified 10/23/24 21:47 paprika Allergy Unknown Verified 10/25/24 00:41 Review of Systems Review of Systems: Constitutional : No Fever, No Chills, No Fatigue ENT/Mouth : No sore throat, No Rhinorrhea Eyes: No Eye Pain, No Swelling, No Redness Cardiovascular : No Chest Pain, No SOB, No Dyspnea on Exertion Respiratory : No Cough, No Sputum Gastrointestinal : No Nausea, No Vomiting, No Diarrhea, No abdominal Pain Genitourinary : No Dysuria, No Urinary Frequency, No Hematuria, Musculoskeletal : No joint pain, No Myalgias, No Joint Swelling Skin : No Skin Lesions, No rash Neuro : No Weakness, No Numbness, No Dizziness, no Headache Psych : No Anxiety/Panic, No Depression All other systems reviewed and are negative PMFSH Past Medical History Attestation statement: The following information was validated with the patient. Source: old records reviewed Medical History TBI (traumatic brain injury) Intellectual disability Autism Social History Social History Household Members: Other Household Members Other:: halfway peers Housing Other:: Care Home Do you presently have visiting nurse or other home services: No Alcohol intake: unknown Patient Tobacco Use Status: Never used Tobacco Smoked in Last 30 Days: No Use of substances other than those prescribed or required for medical reasons: No Advance Directives: No Advance Directives Information Provided: Yes service: No Sexual orientation: Don't Know Physical Exam Vital Signs: Vital Signs: Last Vital Signs Temp 97.9 F 11/06/24 15:43 Pulse 98 11/06/24 15:43 Resp 18 11/06/24 15:43 BP 131/82 11/06/24 15:43 Pulse Ox 100 11/06/24 15:43 BMI result Body Mass Index 24.4 Appearance: Alert. Oriented X3. No acute distress. Slow to respond Eyes: Pupils equal, round and reactive to light. ENT: Pharynx normal. Neck: Normal inspection. Neck supple. CVS: Normal heart rate and rhythm. Pulses normal. Respiratory: No respiratory distress. Breath sounds normal. Abdomen: Soft and nontender. Skin: Skin warm and dry. Normal skin color. Normal skin turgor. Extremities: No lower extremity edema. No calf ttp Neuro: Oriented X 3. No motor deficit. No sensory deficit. CN2-12 intact Medical Decision Making Medical Decision Making MDM Narrative: 53 yo male with PMH of TBI, autism, intellectual disability, depression, mood disorder, schizoaffective disorder here with c/o not being let into his senior living. At this time will consult CARE team Differential Diagnosis Differential Diagnoses: The differential diagnosis associated with the presentation includes poor social support Admission/Observation Consideration of admission/observation: Escalation of care including admission/observation considered stable for senior living but physician observation started at 637pm pending discharge in AM CARE team working on dispo cannot get a hold of senior living Consult Healthcare Provider Management of the patient was discussed with: Behavioral Health Provider (DC back to senior living) Independent Historian Clinical information obtained from an independent historian. History obtained from or confirmed by: EMS External Record Review External record reviewed: Inpatient record Discharge Plan Discharge Clinical Impression: Schizoaffective disorder Patient Disposition: Still a Patient Instructions: Schizoaffective Disorder (ED) Additional Instructions: calm and cooperative in ED return to ED for any emergent medical/psychiatric issues follow up with outpatient providers Prescriptions: No Action clonidine HCl 0.1 mg Tablet 0.1 mg PO BEDTIME PRN (Reason: Insomnia) thiamine HCl (vitamin B1) 100 mg Tablet 100 mg PO DAILY carboxymethylcellulose sodium [Refresh Tears] 0.5 % Drops 4 drp OPHTHALMIC (EYE) Q4H PRN (Reason: Dry Eyes) benztropine 1 mg tablet 1 mg PO BID docusate sodium 100 mg Capsule 100 mg PO BID loratadine 10 mg Tablet 10 mg PO DAILY cholecalciferol (vitamin D3) 25 mcg (1,000 unit) Tablet 25 mcg PO DAILY melatonin 10 mg Tablet 10 mg PO BEDTIME acetaminophen 650 mg Tablet Extended Release 650 mg PO Q4H PRN (Reason: FEVER/PAIN) Patient Comments: MAX 4X/24 HR lisinopril 5 mg tablet 5 mg PO DAILY risperidone 0.5 mg tablet 0.5 mg PO BID PRN (Reason: Agitation) sennosides [Senna Lax] 8.6 mg Tablet 8.6 mg PO DAILY Qty: 0 0RF trazodone 50 mg Tablet 50 mg PO BEDTIME PRN (Reason: Insomnia) 30 Days Qty: 30 0RF polyethylene glycol 3350 17 gram Powder In Packet 17 g PO DAILY Qty: 0 0RF divalproex 500 mg Tablet,Delayed Release (Dr/Ec) 500 mg PO TID 30 Days Qty: 90 0RF bisacodyl [Gentle Laxative (bisacodyl)] 10 mg Suppository 10 mg VT Q8H PRN (Reason: no bm after giving m.o.m) Qty: 0 0RF risperidone 1 mg Tablet 2.5 mg PO TID 30 Days Qty: 225 0RF Print Language: Bermudian
--- OUTSIDE RECORDS SUMMARY | 2024-11-06 19:45 | XMS_ITS | Clinical Summary ---
Author Organization Unknown Care Team Providers Care Loin Trimmer Name Role Phone JULIO C HERNANDEZ MD, YOGI Unavailable Jeaneth FERRO RN, SHANNON Unavailable Unavailable Payers Payer Name Policy Type Policy Number Effective Date Expira tion Date ON DEMAND MEDICARE - [place] [id number] [place] [id number] [facility] - PD [id number] Problems Condition Name Condition Details Condition Category [...] 5 mg tablet 2022-10 00:00: 00 Yes [id number] 1 tablet DAILY 1 tablet DAILY (route: oral) Med Classific ation: Cardiovas cular Therapy Agents trazodone 50 mg tablet 2022-10 00:00: 00 08-11 23:59 :00 No [id number] 1 tablet BEDTIME 1 tablet BEDTIME (route: oral) Med Classific ation: Central Nervous System Agents bisacodyl 10 mg rectal suppository 2023-10 00:00: 00 Yes [id number] 1 supposi tory, rectal 3 TIMES DAILY 1 suppositor y, rectal 3 TIMES DAILY (route: rectal) Med Classific ation: Gastroint estinal Therapy Agents cholecalcif andrez (vitamin D3) 25 mcg (1,000 unit) tablet 2023-10 00:00: 00 Yes [id number] 1 tablet DAILY 1 tablet DAILY (route: oral) Med Classific ation: Electroly te Balance-N utritiona l Products clonidine HCl 0.1 mg tablet 2023-10 00:00: 00 Yes [id number] 1 tablet BEDTIME 1 tablet BEDTIME (route: oral) Med Classific ation: Cardiovas cular Therapy Agents docusate sodium 100 mg capsule 2023-10 0- 00:00: 00 Yes [id number] 1 capsule 2 TIMES DAILY 1 capsule 2 TIMES DAILY (route: oral) Med Classific ation: Gastroint estinal Therapy Agents Fleet Enema 19 gram-7 gram/118 mL 2023-10 0- 00:00: 00 Yes [id number] Per instruc tions EVERY 8 HOURS Per instructio ns EVERY 8 HOURS (route: rectal) Med Classific ation: Gastroint estinal Therapy Agents lisinopril 5 mg tablet 2023-10 00:00: 00 Yes [id number] Per instruc tions DAILY Per instructio ns DAILY (route: oral) Med Classific ation: Cardiovas cular Therapy Agents loratadine 10 mg capsule 2023-10 00:00: 00 Yes [id number] 1 capsule DAILY 1 capsule DAILY (route: oral) Med Classific ation: Respirato ry Therapy Agents MelatoninMa x 10 mg chewable tablet 2023-10 00:00: 00 Yes [id number] 1 tablet BEDTIME 1 tablet BEDTIME (route: oral) Med Classific ation: Central Nervous System Agents Milk of Magnesia 400 mg/5 mL oral suspension 2023-10 0 00:00: 00 Yes [id number] 30 mL EVERY 8 HOURS 30 mL EVERY 8 HOURS (route: oral) Med Classific ation: Gastroint estinal Therapy Agents Miralax 17 gram oral powder packet 2023-10 00:00: 00 Yes [id number] 1 packet DAILY 1 packet DAILY (route: oral) Med Classific ation: Gastroint estinal Therapy Agents Mylanta Maximum Strength 400 mg-400 mg-40 mg/5 mL oral suspension 2023-10 0 00:00: 00 Yes [id number] 30 mL EVERY 4 HOURS 30 mL EVERY 4 HOURS (route: oral) Med Classific ation: Gastroint estinal Therapy Agents Narcan 4 mg/actuatio n nasal spray 2023-10 0-18 00:00: 00 Yes [id number] 1 spray DAILY 1 spray DAILY (route: nasal) Med Classific ation: Antidotes and other Reversal Agents Refresh Tears 0.5 % eye drops 2023-10 00:00: 00 Yes [id number] 2 drops 3 TIMES DAILY 2 drops 3 TIMES DAILY (route: ophthalmic (eye)) Med Classific ation: Ophthalmi c Agents risperidone 0.25 mg tablet 2023-10 00:00: 00 Yes [id number] 1 tablet 2 TIMES DAILY 1 tablet 2 TIMES DAILY (route: oral) Med Classific ation: Central Nervous System Agents Senna Lax 8.6 mg tablet 2023-10 00:00: 00 Yes [id number] 2 tablet EVERY AM 2 tablet EVERY AM (route: oral) Med Classific ation: Gastroint estinal Therapy Agents thiamine HCl (vitamin B1) 100 mg tablet 2023-10 00:00: 00 Yes [id number] 1 tablet DAILY 1 tablet DAILY (route: oral) Med Classific ation: Electroly te Balance-N utritiona l Products trazodone 50 mg tablet 2023-10 00:00: 00 Yes [id number] .5 tablet BEDTIME .5 tablet BEDTIME (route: [...] AWARENESS FOR SAFETY AND WILL NOTIFY CLINICAL SALESPERSON HANDBAGS AND PHYSICIAN/PROVIDER WITH ANY CHANGE IN CONDITION. [code = SKILLED NURSE WILL MAINTAIN SITUATIONAL AWARENESS FOR SAFETY AND WILL NOTIFY CLINICAL SALESPERSON HANDBAGS AND PHYSICIAN/PROVIDER WITH ANY CHANGE IN CONDITION.] [...] CARE WILL BE ESTABLISHED THAT MEETS PATIENT'S JAIL NEEDS AND INCLUDES PATIENT GOAL FOR HOME [...] End Date/Time Encounter Type Admission Type Attending [facility] Facility Care Department Encounter ID Discharge Date Discharge Status Discharge Condition Discharge Reason Percent Goals Met 2024-08-11 00:00:00 2024-08-16 00:00:00 Outpatient SHANNON [facility] [id number] 2024-08-16 00:00:00 DISCHARGED /TRANSFERR ED TO A SHORT-TERM [facility] FOR INPATIENT CARE REMAINS INPATIENT AT TIME OF DISCHARGE ADMITTED TO HOSPITAL 100.00
--- OUTSIDE RECORDS SUMMARY | 2024-11-06 19:46 | XMS_ITS | Clinical Summary ---
Author Organization Unknown Care Team Providers Care Regional Operations Manager Name Role Phone JULIO C HERNANDEZ MD, YOGI Unavailable Jeaneth FERRO RN, SHANNON Unavailable Unavailable Payers Payer Name Policy Type Policy Number Effective Date Expira tion Date ON DEMAND MEDICARE - [place]ILLING - [place] [id number] [place] [id number] [facility] - PD [id number] Problems Condition Name Condition Details Condition Category [...] 5 mg tablet 2022-10 00:00: 00 Yes [id number] 1 tablet DAILY 1 tablet DAILY (route: oral) Med Classific ation: Cardiovas cular Therapy Agents trazodone 50 mg tablet 2022-10 00:00: 00 08-11 23:59 :00 No [id number] 1 tablet BEDTIME 1 tablet BEDTIME (route: oral) Med Classific ation: Central Nervous System Agents bisacodyl 10 mg rectal suppository 2023-10 00:00: 00 Yes [id number] 1 supposi tory, rectal 3 TIMES DAILY 1 suppositor y, rectal 3 TIMES DAILY (route: rectal) Med Classific ation: Gastroint estinal Therapy Agents cholecalcif andrez (vitamin D3) 25 mcg (1,000 unit) tablet 2023-10 00:00: 00 Yes [id number] 1 tablet DAILY 1 tablet DAILY (route: oral) Med Classific ation: Electroly te Balance-N utritiona l Products clonidine HCl 0.1 mg tablet 2023-10 00:00: 00 Yes [id number] 1 tablet BEDTIME 1 tablet BEDTIME (route: oral) Med Classific ation: Cardiovas cular Therapy Agents docusate sodium 100 mg capsule 2023-10 0- 00:00: 00 Yes [id number] 1 capsule 2 TIMES DAILY 1 capsule 2 TIMES DAILY (route: oral) Med Classific ation: Gastroint estinal Therapy Agents Fleet Enema 19 gram-7 gram/118 mL 2023-10 0- 00:00: 00 Yes [id number] Per instruc tions EVERY 8 HOURS Per instructio ns EVERY 8 HOURS (route: rectal) Med Classific ation: Gastroint estinal Therapy Agents lisinopril 5 mg tablet 2023-10 00:00: 00 Yes [id number] Per instruc tions DAILY Per instructio ns DAILY (route: oral) Med Classific ation: Cardiovas cular Therapy Agents loratadine 10 mg capsule 2023-10 00:00: 00 Yes [id number] 1 capsule DAILY 1 capsule DAILY (route: oral) Med Classific ation: Respirato ry Therapy Agents MelatoninMa x 10 mg chewable tablet 2023-10 00:00: 00 Yes [id number] 1 tablet BEDTIME 1 tablet BEDTIME (route: oral) Med Classific ation: Central Nervous System Agents Milk of Magnesia 400 mg/5 mL oral suspension 2023-10 0 00:00: 00 Yes [id number] 30 mL EVERY 8 HOURS 30 mL EVERY 8 HOURS (route: oral) Med Classific ation: Gastroint estinal Therapy Agents Miralax 17 gram oral powder packet 2023-10 00:00: 00 Yes [id number] 1 packet DAILY 1 packet DAILY (route: oral) Med Classific ation: Gastroint estinal Therapy Agents Mylanta Maximum Strength 400 mg-400 mg-40 mg/5 mL oral suspension 2023-10 0 00:00: 00 Yes [id number] 30 mL EVERY 4 HOURS 30 mL EVERY 4 HOURS (route: oral) Med Classific ation: Gastroint estinal Therapy Agents Narcan 4 mg/actuatio n nasal spray 2023-10 0-18 00:00: 00 Yes [id number] 1 spray DAILY 1 spray DAILY (route: nasal) Med Classific ation: Antidotes and other Reversal Agents Refresh Tears 0.5 % eye drops 2023-10 00:00: 00 Yes [id number] 2 drops 3 TIMES DAILY 2 drops 3 TIMES DAILY (route: ophthalmic (eye)) Med Classific ation: Ophthalmi c Agents risperidone 0.25 mg tablet 2023-10 00:00: 00 Yes [id number] 1 tablet 2 TIMES DAILY 1 tablet 2 TIMES DAILY (route: oral) Med Classific ation: Central Nervous System Agents Senna Lax 8.6 mg tablet 2023-10 00:00: 00 Yes [id number] 2 tablet EVERY AM 2 tablet EVERY AM (route: oral) Med Classific ation: Gastroint estinal Therapy Agents thiamine HCl (vitamin B1) 100 mg tablet 2023-10 00:00: 00 Yes [id number] 1 tablet DAILY 1 tablet DAILY (route: oral) Med Classific ation: Electroly te Balance-N utritiona l Products trazodone 50 mg tablet 2023-10 00:00: 00 Yes [id number] .5 tablet BEDTIME .5 tablet BEDTIME (route: [...] AWARENESS FOR SAFETY AND WILL NOTIFY CLINICAL CRIB TENDER AND PHYSICIAN/PROVIDER WITH ANY CHANGE IN CONDITION. [code = SKILLED NURSE WILL MAINTAIN SITUATIONAL AWARENESS FOR SAFETY AND WILL NOTIFY CLINICAL CRIB TENDER AND PHYSICIAN/PROVIDER WITH ANY CHANGE IN CONDITION.] [...] CARE WILL BE ESTABLISHED THAT MEETS PATIENT'S INTERMEDIATE NEEDS AND INCLUDES PATIENT GOAL FOR HOME [...] End Date/Time Encounter Type Admission Type Attending [facility] Care Facility Care Department Encounter ID Discharge Date Discharge Status Discharge Condition Discharge Reason Percent Goals Met 2024-08-11 00:00:00 2024-08-16 00:00:00 Outpatient SHANNON [facility] [id number] 2024-08-16 00:00:00 DISCHARGED /TRANSFERR ED TO A SHORT-TERM [facility] FOR INPATIENT CARE REMAINS INPATIENT AT TIME OF DISCHARGE ADMITTED TO HOSPITAL 100.00
[2024-11-06] MEDS: Docusate Sodium 100 MG CAPSULE PO (21:17)
[2024-11-06] MEDS: risperiDONE 0.5 MG TABLET 2.5 MG PO (21:17)
[2024-11-06] MEDS: Benztropine Mesylate 1 MG TABLET PO (21:17)
[2024-11-06] MEDS: Divalproex Sodium 500 MG TABLET.DR PO (21:18)
--- NOTE | 2024-11-06 21:25 | PC.NURSE ---
client expresses depakote pill is big, if he stays please consider 2-250mg pills
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
--- NOTE | 2024-11-07 01:12 | PC.NURSE ---
Left foot swelling- primarily of the superior aspect noted with mild tenderness on palpation. PT reports he thinks he kicked something when he was made. Provider aware, verbal read back order placed.
[2024-11-07 02:12] VITALS: BP 122/71; PULSE 87; RESP 17; TEMP 36.8; O2SAT 99
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
[2024-11-07] MEDS: Loratadine 10 MG TABLET PO (08:07)
[2024-11-07] MEDS: Divalproex Sodium 500 MG TABLET.DR PO ×3 (08:07→20:58)
[2024-11-07] MEDS: risperiDONE 0.5 MG TABLET 2.5 MG PO ×3 (08:07→20:59)
[2024-11-07] MEDS: Cholecalciferol (Vitamin D3) 25 MCG TABLET PO (08:07)
[2024-11-07] MEDS: Thiamine HCL 100 MG TABLET PO (08:08)
[2024-11-07] MEDS: Benztropine Mesylate 1 MG TABLET PO ×2 (08:08→20:58)
[2024-11-07] MEDS: lisinopriL 5 MG TABLET PO (08:08)
[2024-11-07 08:09] VITALS: BP 120/62; PULSE 114; RESP 20; TEMP 36.5; O2SAT 100
--- NOTE | 2024-11-07 08:44 | MHC.CARE ---
Third email sent to Grazyna Larose-Ronan GARCIA of [facility] and Anne Smith Nurse Gear Tooth Grinding Machine Operator-[facility] regarding discharge planning.
[2024-11-07] MEDS: Docusate Sodium 100 MG CAPSULE PO ×2 (09:54→20:59)
[2024-11-07] MEDS: Sennosides 8.6 MG TABLET PO (09:54)
[2024-11-07] MEDS: polyethylene glycoL 3350 17 GM POWD.PACK PO (09:54)
--- NOTE | 2024-11-07 10:55 | MHC.CARE ---
T/w returned call of Pts krzysztof Avila, who expressed frustration regarding communication and discharge planning from [facility]. T/w informed her that Pt does not meet criteria for IPLOC admission or medical necessity to remain in the ED. She reported she does not want Pt to return to current placement and request an alternative placement. However t/w provided education that a new placement is not able to be secured in the Emergency Department at this time.
--- NOTE | 2024-11-07 12:15 | MHC.CARE ---
T/w left s for Director Lia Barnard ([phone]) Aguilar Griffiths, the [facility] ([phone])
--- NOTE | 2024-11-07 14:32 | MHC.CARE ---
CARE Team received a voicemail from? Shelter Director - Aguilar - ([phone]) and t/w called back and he stated he is not aware of the plan of care and to reach out to his lawn service supervisor? Mae Preston ([phone]) who reported that behind the scenes they are attempting to place Pt in [facility] respite bed and will send t/w the medication forms for t/w to assist in the completion of.
--- NOTE | 2024-11-07 14:36 | MHC.CARE ---
CARE Team spoke with Pts guardian to provide update Margarita, regrading DDS attempting to secure [facility] placement.
--- NOTE | 2024-11-07 15:11 | PC.NURSE ---
Pt. asking CARE Team if he has tumors on his penis. Redirected easily
[2024-11-07] MEDS: Melatonin 3 MG TABLET 9 MG PO (20:59)
[2024-11-07] MEDS: Acetaminophen 325 MG TABLET 650 MG PO (23:26)
[2024-11-07] MEDS: traZODone HCL 50 MG TABLET PO (23:30)
[2024-11-08 02:16] VITALS: BP 123/78; PULSE 88; RESP 18; TEMP 36.8; O2SAT 97
--- NOTE | 2024-11-08 06:02 | PC.NURSE ---
Pt OOB hourly to urinate for the past four hours. PT denies pain, and could not indicate if it had a foul odor. Provider notified. TW placed order. Pt has been sleeping soundly since respirations even and unlabored. Safety check remain in place. Plan of care ongoing
[2024-11-08 07:37] LABS: Appearance Urine Clear; Color Urine Yellow; Glucose Urine UA Negative (Negative); Leukocyte Esterase Urine Negative (Negative); Nitrite Urine Negative (Negative); Specific Gravity - Urine 1.015 (1.005-1.025); Urine Blood Negative (Negative); Urine Ketones Negative (Negative); Urine Protein Negative (Neg-Trace)
[2024-11-08 08:15] VITALS: BP 120/67; PULSE 113; RESP 18; TEMP 36.9; O2SAT 98
[2024-11-08] MEDS: risperiDONE 0.5 MG TABLET 2.5 MG PO ×3 (08:22→20:55)
[2024-11-08 08:23] VITALS: BP 120/67
[2024-11-08] MEDS: Divalproex Sodium 500 MG TABLET.DR PO ×3 (08:23→20:53)
[2024-11-08] MEDS: lisinopriL 5 MG TABLET PO (08:23)
[2024-11-08] MEDS: Cholecalciferol (Vitamin D3) 25 MCG TABLET PO (08:23)
[2024-11-08] MEDS: Loratadine 10 MG TABLET PO (08:23)
[2024-11-08] MEDS: Thiamine HCL 100 MG TABLET PO (08:23)
[2024-11-08] MEDS: Benztropine Mesylate 1 MG TABLET PO ×2 (08:23→20:53)
--- NOTE | 2024-11-08 09:30 | MHC.CARE ---
Pt spent time coloring with t/w, Pt was calm, cooperative and engaged.
--- NOTE | 2024-11-08 10:53 | PHA.MEDREC ---
Addendum entered by Bernice Husain RP 11/08/24 11:11: Reviewed by [facility] Original Note: Pharmacy Consult ? Medication Reconciliation Pharmacy has reviewed the medication reconciliation done by nursing. Spoke to [facility] (Aguilar) to confirm med list. Had to make some changes Divalproex 1,000 mg at bedtime NOT 500 mg TID, Risperidone 1 mg QAM and 2 mg QPM also mg only PRN. Added Lorazapam 1 mg BID and Lorazapam 1 mg Q6H prn only.
--- NOTE | 2024-11-08 11:00 | MHC.CARE ---
CARE Team recieved VM from Kaila Zaragoza [phone] , CANDIS regarding case, t/w attempted to call back and VM was left
--- NOTE | 2024-11-08 12:02 | MHC.CARE ---
CARE Team spoke with Pts DDS worker, they currently on working on D[facility] Respite placement.
--- NOTE | 2024-11-08 12:16 | P.CNPS_ITS ---
History of Present Illness Date of Service: 11/08/2024 Chief Complaint: JUST DC'D, BEHAVIORAL FROM [facility] PER EMS Discussed with referring provider: Yes Sources of Information: patient interviewed, chart reviewed and crisis/core team assessment reviewed HPI Narrative: Mr. Kim is a 53 year-old male with developmental condition who recently was discharged from after treatment of increased combative behaviors at [facility]. Unclear circumstances of discharged but pt was sent back to [facility]. He was brought back to ED as he was not allowed or able to enter the [facility]. He has been boarding in the ED since 11/06/2024. During stay in the ED, pt has presented as calm. No aggressive behaviors have been reported. He is sleeping well. Pt seen in ED. Pt presents as pleasant. He denies any concerns. He has been taking medications as prescribed. He shows this mortgage underwriter his glasses, left side is missing lenses and asks if I can fix it. Medications have been reviewed and continued as they were prescribed on M5 prior to admission. Past Psychiatric History: Inpt: it appears he has had inpt admissions in the past but unknown dates or places. He recently was boarding at [facility] ED- started on depakote, risperidone increased and ativan added. OP: [facility] [phone] Past medication trials: risperidone, depakote. Medical Evaluation Reviewed: Yes [facility] Medical History TBI (traumatic brain injury) Intellectual disability Autism Family History: Deferred Social History: Patient lived with his mother until she Currently lives in a fdc Reportedly, his Legal guardian is his cousin Trauma History: Deferred Diagnostics Vital Signs (24Hr): Vital Signs - 24 hr 11/08/24 02:16 11/08/24 08:15 11/08/24 08:23 Temperature 98.2 F 98.5 F Pulse Rate 88 113 H Respiratory Rate 18 18 Blood Pressure 123/78 120/67 120/67 Pulse Oximetry 97 98 Oxygen Delivery Method Room Air Room Air BMI result Body Mass Index 24.4 Labs Labs: Laboratory Results - last 48 hr 11/08/24 07:04 Urine Color Yellow Urine Appearance Clear Urine pH 7.0 Ur Specific [place] 1.015 Urine Protein Negative Urine Glucose (UA) Negative Urine Ketones Negative Urine Blood Negative Urine Nitrite Negative Ur Leukocyte Esterase Negative Mental Status Exam Mental Status Exam Narrative: Appearance: wearing hospital gown, fair hygiene, in NAD Behavior: somewhat cooperative and friendly Psychomotor: no agitation or retardation. no noted tremors Speech: mumbles, at times unintelligible, regular rate, spontaneous TP: more linear today TC: wanting cold cuts for lunch Mood: sad Affect: constricted SI: none HI: denies VH/AH: none Delusions: no overt delusional content Insight/judgment: impaired x 2 Medications Medications Current Medications Acetaminophen (Acetaminophen 325 Mg Tablet) 650 mg PO Q4H PRN PRN Reason: FEVER/PAIN Last Admin: 11/07/24 23:26 Dose: 650 mg Artificial Tears (Artificial Tears 15 Ml Drops) 1 drop EYE-BOTH Q4H PRN PRN Reason: Dry Eyes Benztropine Mesylate (Benztropine Mesylate 1 Mg Tablet) 1 mg PO BID [facility] Last Admin: 11/08/24 08:23 Dose: 1 mg Bisacodyl (Bisacodyl 10 Mg Supp.Rect) 10 mg TX Q8H PRN PRN Reason: no bm after giving m.o.m Clonidine HCl (Clonidine Hcl 0.1 Mg Tablet) 0.1 mg PO BEDTIME PRN; Protocol PRN Reason: Insomnia Divalproex Sodium (Divalproex Sodium 500 Mg Tablet.Dr) 500 mg PO TID [facility] Last Admin: 11/08/24 08:23 Dose: 500 mg Docusate Sodium (Docusate Sodium 100 Mg Capsule) 100 mg PO BID [facility] Last Admin: 11/08/24 08:23 Dose: Not Given Lisinopril (Lisinopril 5 Mg Tablet) 5 mg PO DAILY [facility]; Protocol Last Admin: 11/08/24 08:23 Dose: 5 mg Loratadine (Loratadine 10 Mg Tablet) 10 mg PO DAILY [facility] Last Admin: 11/08/24 08:23 Dose: 10 mg Melatonin (Melatonin 3 Mg Tablet) 9 mg PO BEDTIME [facility] Last Admin: 11/07/24 20:59 Dose: 9 mg Polyethylene Glycol (Polyethylene Glycol 3350 17 Gm Powd.Pack) 17 gm PO DAILY [facility] Last Admin: 11/08/24 08:23 Dose: Not Given Risperidone (Risperidone 0.5 Mg Tablet) 0.5 mg PO BID PRN PRN Reason: Agitation Risperidone (Risperidone 0.5 Mg Tablet) 2.5 mg PO TID [facility] Last Admin: 11/08/24 08:22 Dose: 2.5 mg Senna (Sennosides 8.6 Mg Tablet) 8.6 mg PO DAILY [facility] Last Admin: 11/08/24 08:24 Dose: Not Given Thiamine HCl (Thiamine Hcl 100 Mg Tablet) 100 mg PO DAILY [facility] Last Admin: 11/08/24 08:23 Dose: 100 mg Trazodone HCl (Trazodone Hcl 50 Mg Tablet) 50 mg PO BEDTIME PRN PRN Reason: Insomnia Last Admin: 11/07/24 23:30 Dose: 50 mg Vitamin D (Cholecalciferol (Vitamin D3) 25 Mcg Tablet) 25 mcg PO DAILY [facility] Last Admin: 11/08/24 08:23 Dose: 25 mcg Allergies Allergies Allergy/AdvReac Type Severity Reaction Status Date / Time atenolol [From Tenormin] Allergy Unknown Verified 11/06/24 15:53 hydrochlorothiazide Allergy Unknown Verified 10/23/24 21:47 paprika Allergy Unknown Verified 10/25/24 00:41 Assessment & Plan Assessment & Plan (1) TBI (traumatic brain injury): Status: Acute Code(s): S06.9XAA - Unspecified intracranial injury with loss of consciousness status unknown, initial encounter (2) Intellectual disability: Status: Acute Code(s): F79 - Unspecified intellectual disabilities (3) Autism: Status: Acute Code(s): F84.0 - Autistic disorder (4) Mood disorder as late effect of traumatic brain injury: Status: Acute Code(s): F06.30 - Mood disorder due to known physiological condition, unspecified; S06.9XAS - Unspecified intracranial injury with loss of consciousness status unknown, sequela Plan Pt continues to present as stable and in no need for inpatient level of care at this point. Care team coordinating return to the . Medication forms completed and signed. Total time managing care of this patient today ____ minutes.
--- NOTE | 2024-11-08 14:41 | MHC.CARE ---
CARE Team spoke with Martha Min Pt has placmeent at [facility] for 11/09/24 ETA pending.
--- NOTE | 2024-11-08 14:57 | MHC.CARE ---
[employer] supervisor Aguilar, updated Pt on plan of care in person.
[2024-11-08 16:46] VITALS: BP 125/72; PULSE 104; RESP 20; TEMP 37.1; O2SAT 99
--- NOTE | 2024-11-08 19:33 | PC.NURSE ---
Assumed care of this patient at 1900. patient calm and cooperative, requesting tea. Tea given and patient is happy and back to his room for the time being.
[2024-11-08 20:06] VITALS: BP 125/81; PULSE 100; RESP 20; TEMP 37.1; O2SAT 100
[2024-11-08] MEDS: Melatonin 3 MG TABLET 9 MG PO (20:53)
[2024-11-08] MEDS: Docusate Sodium 100 MG CAPSULE PO (20:55)
[2024-11-08] MEDS: Acetaminophen 325 MG TABLET 650 MG PO (23:42)
--- NOTE | 2024-11-08 23:45 | PC.NURSE ---
Patient presents to nursing desk with complaints of 5/10 shoulder pain. Tylenol administered.
[2024-11-09] MEDS: traZODone HCL 50 MG TABLET PO (00:28)
[2024-11-09 07:38] VITALS: PULSE 76; RESP 16; O2SAT 99
--- NOTE | 2024-11-09 07:39 | PC.NURSE ---
Assumed care of patient at 0645, patient appears to be in no apparent distress this am, calm and cooperative, ate breakfast at table, now ambulating with steady gait around BH pod, offering no complaints to this RN. Continue plan of care for respite bedsearch
[2024-11-09 08:02] VITALS: BP 108/75; PULSE 110; RESP 16; TEMP 36.9; O2SAT 100
[2024-11-09 08:16] VITALS: BP 108/75
[2024-11-09] MEDS: Loratadine 10 MG TABLET PO (08:23)
[2024-11-09] MEDS: risperiDONE 0.5 MG TABLET 2.5 MG PO (08:23)
[2024-11-09] MEDS: Sennosides 8.6 MG TABLET PO (08:23)
[2024-11-09] MEDS: Cholecalciferol (Vitamin D3) 25 MCG TABLET PO (08:23)
[2024-11-09] MEDS: Thiamine HCL 100 MG TABLET PO (08:23)
[2024-11-09] MEDS: Benztropine Mesylate 1 MG TABLET PO (08:23)
[2024-11-09] MEDS: Divalproex Sodium 500 MG TABLET.DR PO ×2 (08:23→16:41)
[2024-11-09] MEDS: Docusate Sodium 100 MG CAPSULE PO (08:23)
[2024-11-09] MEDS: polyethylene glycoL 3350 17 GM POWD.PACK PO (08:23)
--- NOTE | 2024-11-09 09:09 | PC.NURSE ---
Patient took shower, no apparent distress noted. changed clothes and blankets
--- NOTE | 2024-11-09 09:52 | PC.NURSE ---
Patient appears to be sleeping, no apparent distress noted, respirations even and unlabored
--- NOTE | 2024-11-09 10:40 | MHC.CARE ---
Discharge meeting held with Stella Curiel, Rebekah Dupree and Tariq, community providers. Plan for Pt to be transported to new placement at 3:30pm via chair van. CARE Team provided RN outpatient BLANKA Douglas phone number [phone] regarding medicaiton.
--- NOTE | 2024-11-09 13:16 | MHC.CARE ---
Discharge confirmed for 1529 via chair van to [address] [place] [address] MARILYN Mejia
[2024-11-09 17:03] VITALS: BP 109/63; PULSE 68; RESP 14; TEMP 36.3; O2SAT 97
== END 2024-11-09 17:04 | disposition home or self-care (01) ==
PROVIDERS: Emergency Provider Emergency Medicine
DX: F25.9 Schizoaffective disorder, unspecified (principal); F06.30 Mood disorder due to known physiological condition, unspecified; F84.0 Autistic disorder; F79 Unspecified intellectual disabilities; Z87.820 Personal history of traumatic brain injury
CPT/HCPCS: 73030; 73630; 81003; 99284; 99285; S9485

== ENCOUNTER → 2024-11-06 16:07 | Outpatient (BNV) | payer MEDICARE, MEDICAID, SELFPAY | PROVIDERS: Emergency Provider Emergency Medicine; Visit Provider Social Worker | DX: F79 Unspecified intellectual disabilities (principal); S06.9XAA Unspecified intracranial injury with loss of consciousness status unknown, initial encounter; F84.0 Autistic disorder; F06.30 Mood disorder due to known physiological condition, unspecified; S06.9XAS Unspecified intracranial injury with loss of consciousness status unknown, sequela | CPT/HCPCS: 99285 ==

== ENCOUNTER → 2024-11-07 01:55 | Outpatient (BNV) | payer MEDICARE, MEDICAID, SELFPAY | PROVIDERS: Emergency Provider Emergency Medicine; Visit Provider Radiology Diagnostic Radiology | DX: M61.411 Other calcification of muscle, right shoulder (principal); R22.42 Localized swelling, mass and lump, left lower limb | CPT/HCPCS: 73030; 73630 ==